=== PATIENT | male | born 1965 | race African-American/Black ===

== ENCOUNTER 2020-09-28 13:19 | Inpatient (IN) | payer OTHER, SELFPAY ==
[2020-09-28] VITALS (16 sets, daily range): BP systolic 158–182; BP diastolic 110–136; PULSE 91–107; RESP 18–31; TEMP 35.9–36.6; O2SAT 86–97; BMI 58.1; BMI 51.5
--- NOTE | ~2020-09-28 | US_ITS ---
EXAMINATION: US venous doppler [facility] DATE: 09/29/2020 11:54 INDICATION: Lower limb edema. TECHNIQUE: Grayscale ultrasound images without and with compression and Doppler ultrasound images of the bilateral lower extremity veins were obtained. COMPARISON: None. FINDINGS: The visualized portions of right common femoral vein, profunda (deep) femoral vein, femoral vein, pop liteal vein, peroneal veins, posterior tibial veins, and greater saphenous vein outflow are patent. The visualized portions of left common femoral vein, profunda femoral vein, femoral vein, popliteal v ein, peroneal veins, posterior tibial veins, and greater saphenous vein outflow are patent. IMPRESSION: 1. No deep venous thrombosis. Reviewed, dictated and finalized at location B.
--- NOTE | ~2020-09-28 | XR_ITS ---
EXAMINATION: XR chest 2V DATE: 10/02/2020 13:24 INDICATION: Congestive heart failure. TECHNIQUE: Frontal and lateral views of the chest were obtained on 3 radiographs. COMPARISON: Chest single view 09/28/2020 FINDINGS: Sensitivity and specificity are decreased by obesity. There are airspace and interstitial o pacities in the mid and lower lung zones. No pleural effusion or pneumothorax. Cardiomegaly is noted. IMPRESSION: 1. Airspace and interstitial opacities in the mid and lower lung zones with improvement on the right, consistent with pulmonary edema versus pneumonia. 2. Cardiomegaly. Reviewed, dictated and finalized at location B. IMPRESSION: 1. Airspace and interstitial opacities in the mid and lower lung zones with imp rovement on the right, consistent with pulmonary edema versus pneumonia. 2. Cardiomegaly.
--- NOTE | ~2020-09-28 | XR_ITS ---
XR chest 1V portable DATE: 09/28/2020 14:50 INDICATION: Shortness of breath. History of congestive heart failure. TECHNIQUE: Portable AP chest on 09/28/2020 at 1443 hours COMPARISON: None FINDINGS: There is cardiomegaly, pulmonary vascular congestion and redistribution. There is prominenc e of the minor fissure. There are bilateral central and lower lung zone infiltrates suggestive of pul monary edema. There may be small pleural effusions. No pneumothorax. IMPRESSION: Congestive heart failure pulmonary edema Reviewed, dictated and finalized at location A.
--- NOTE | ~2020-09-28 | XR_ITS ---
XR chest 1V portable 10/05/2020 16:14 Indication: CHF exacerbation Procedure: AP portable chest Comparison: 10/02/2020 Findings: Cardiomegaly with interstitial edema. No significant pleural effusion or pneumothorax. No a cute osseous abnormality. Impression: 1: Cardiomegaly with interstitial edema. Reviewed, dictated and finalized at location A. Impression: 1: Cardiomegaly with interstitial edema.
--- NOTE | 2020-09-28 13:32 | ECG_ITS ---
Measurements Intervals [place] Rate: 102 P: 60 MA: 128 QRS: 116 QRSD: 120 T: 48 QT: 395 QTc: 516 Interpretive Statements SINUS TACHYCARDIA RIGHT AXIS DEVIATION POSSIBLE LEFT ATRIAL ENLARGEMENT INTRAVENTRICULAR CONDUCTION DELAY CANNOT RULE OUT SEPTAL INFARCT, AGE INDETERMINATE BORDERLINE ST-T WAVE ABNORMALITY- ANT/INF LEADS BASELINE ARTIFACT- V2-V3 ABNORMAL ECG Electronically Signed On 09-28-2020 21:52:37 CDT by Mohamud Cortez D.O.
[2020-09-28 13:50] LABS: Basophils Absolute Auto 0.1 K/mm3 (0.0-0.1); Basophils Percent Auto 0.4 % (0.2-1.2); Eosinophils Absolute Auto 0.1 K/mm3 (0-0.3); Eosinophils Percent Auto 0.8 % (0-4.4); Hematocrit 50.7 % (42.0-52.0); Hemoglobin 14.7 g/dL (14.0-18.0); Immature Granulocyte Absolute 0.07 K/mm3 (0.00-0.031); Immature Granulocyte Percent A 0.4 % (0-0.5); Lymphocytes Absolute Auto 1.85 K/mm3 (0.9-3.2); Lymphocytes Percent Auto 11.1 % (18.3-44.2); Mean Corpuscular Hemoglobin 22.5 pg (26-34); Mean Corpuscular Volume 77.8 fl (80-100); Mean Platelet Volume 8.8 fl (7.4-10.4); Monocytes Absolute Auto 1.1 K/mm3 (0.1-0.6); Monocytes Percent Auto 6.6 % (2.6-8.5); Neutrophils Absolute Auto 13.5 K/mm3 (1.3-6.7); Neutrophils Percent Auto 80.7 % (45.5-73.1); Platelet Count Result 298 k/mm3 (150-375); Red Blood Count 6.52 M/mm3 (4.6-6.20); White Blood Count 16.7 K/mm3 (4.5-10.0)
[2020-09-28 13:53] LABS: Hypochromasia 1+ (NORMAL); Platelet Estimate Adequate (Adequate)
[2020-09-28 13:58] LABS: Alanine Aminotransferase 16 U/L (4-50); Albumin Level 3.8 g/dL (3.5-5.1); Alkaline Phosphatase 77 U/L (38-126); Anion Gap 5 mmol/L (8-16); Aspartate Amino Transferase 22 U/L (17-59); Bilirubin,Total 0.5 mg/dL (0.2-1.3); Blood Urea Nitrogen 14 mg/dL (9-20); Calcium 8.9 mg/dL (8.4-10.2); Carbon Dioxide 30 mmol/L (22-30); Chloride 105 mmol/L (98-107); Estimated CRCL calculation 115 ml/min; Estimated Glomerular Filt Rate > 60; Glucose 142 mg/dL (75-110); Potassium 4.4 mmol/L (3.4-5.0); Sodium 140 mmol/L (137-145)
[2020-09-28 14:02] LABS: INR 1.1; Partial Thromboplastin Time 31.9 SECONDS (22.3-36.8); Prothrombin Time 14.3 Seconds (11.1-14.7)
[2020-09-28 14:10] LABS: Alveolar/Arterial O2 Gradient 139.5 mmHg; Base Excess ABG 1.8 mEq/l (+/-2.0); Fractional Inspired Oxygen 35 %; Oxygen Saturation ABG 90.3 % (95.0-100.0); Oxyhemoglobin 85.3 % THb (90.0-100.0); PCO2 ABG 44.4 mmHg (35.0-45.0); PO2 ABG 58.4 mmHg (80.0-100.0); PO2 FiO2 Ratio Arterial Blood 1.67 %; pH ABG 7.402 (7.350-7.450)
[2020-09-28 14:11] LABS: Troponin I 0.012 ng/mL (0.000-0.034)
[2020-09-28 14:11] LABS: Device NON-INVASIVE VENT; Modified Allen's Test Pass; Site Drawn LEFT RADIAL
[2020-09-28 14:12] LABS: Non-Invasive Expiratory Pressure 8 CMH2O; Non-Invasive Inspiratory Pressure 16 CMH2O; Non-Invasive Vent Rate 16 /MIN
--- NOTE | 2020-09-28 15:02 | ED.SOB ---
HPI - SOB/Dyspnea General Chief Complaint: Shortness of Breath/Dyspnea Stated Complaint: SOB-CHF Time Seen by Provider: 09/28/20 13:30 Source: patient Limitations: no limitations History of Present Illness HPI Narrative: Patient is 55 years old -Citizen Of The [place] male presents to the ED by private car with gradual increase of shortness of breath over the last few days, got worse today. History of CHF, on chronic oxygen by nasal cannula at 3 L all the time. Patient denies any fever, chills, nausea, vomiting, chest pain, back pain. Patient did not take his medications for a while Related Data Home Medications Medication Instructions Recorded Confirmed No Home Medications 09/28/20 09/28/20 Allergies Allergy/AdvReac Type Severity Reaction Status Date / Time No Known Allergies Allergy Verified 09/28/20 13:27 Review of Systems Review of Systems: ROS unobtainable: Yes unobtainable due to medical condition PMFSH Social History Social History Smoking packs per day: 1 Smoking cigarettes per day: 20.0 Years smoked: 40 Smoking pack-years: 40.00 Smoking status: Current every day smoker Tobacco type: cigarettes Alcohol intake: never Substance use: current Substance use type: marijuana Last use: 09/26/2020 Gender identity (if verbalized by the patient): Male Spiritual care concerns: No Exam Narrative: Exam Narrative: General appearance: Well-developed, well-nourished, obese, hyperventilating, Skin: Normal color Head: Normocephalic, nontraumatic Eyes: Clear conjunctiva ENT: Oropharynx normal, ears normal, nose normal Neck: Supple, nontender Chest and respiratory: Marked effusion of air entry bilaterally, scattered with rales bilaterally mainly on the right side Heart: Tachycardia Abdomen: Soft, nontender, no organomegaly, quiet bowel sounds Vascular: Normal peripheral pulses, normal capillary refill. Musculoskeletal: Normal range of motion, nontender back Neurologic: Alert and oriented, unable to talk because of the trouble breathing Course Course Emergency Course: Improving Vital Signs Vital signs: Vital Signs Temperature 36.5 C 09/28/20 13:24 Pulse Rate 107 H 09/28/20 13:24 Respiratory Rate 31 H 09/28/20 13:24 Blood Pressure 174/118 H 09/28/20 13:24 Pulse Oximetry 87 L 09/28/20 13:24 Temperature 35.9 C L 09/28/20 16:40 Pulse Rate 92 09/28/20 18:00 Respiratory Rate 21 H 09/28/20 16:43 Blood Pressure 174/112 H 09/28/20 16:40 Pulse Oximetry 94 09/28/20 16:43 MDM - SOB/Dyspnea MDM Narrative Medical decision making narrative: Patient presents with shortness of breath. My differential diagnosis as below. Labs, chest x-ray, blood gas, BiPAP ordered further plan to follow Differential Diagnosis Differential diagnosis: Likely acute exacerbation of chronic obstructive airways disease, congestive heart failure, community acquired pneumonia and pulmonary embolism Lab Data Result diagrams: 09/28/20 13:39 09/28/20 13:39 Labs: Lab Results 09/28/20 09/28/20 09/28/20 Range/Units 13:39 13:39 13:39 WBC 16.7 H (4.5-10.0) K/mm3 RBC 6.52 H (4.6-6.20) M/mm3 Hgb 14.7 (14.0-18.0) g/dL Hct 50.7 (42.0-52.0) % MCV 77.8 L (80-100) fl MCH 22.5 L (26-34) pg MCHC 29.0 L (32-36) g/dl RDW 22.0 H (11.5-14.5) % Plt Count 298 (150-375) k/mm3 MPV 8.8 (7.4-10.4) fl Immature Gran % (Auto) 0.4 (0-0.5) % Neut % (Auto) 80.7 H (45.5-73.1) % Lymph % (Auto) 11.1 L (18.3-44.2) % [place] % (Auto) 6.6 (2.6-8.5) % Eos % (Auto) 0.8 (0-4.4) % Baso % (Auto) 0.4
[2020-09-28] MEDS: FUROSEMIDE INJ 40 MG/4 ML VIAL 60 MG IV PUSH (15:08)
[2020-09-28] MEDS: NITROGLYCERIN OINTMENT 1 INCH DOSE TRANSDERM ×2 (15:10→23:39)
[2020-09-28] MEDS: FUROSEMIDE INJ 40 MG/4 ML VIAL 20 MG IV PUSH (15:17)
[2020-09-28 16:00] LABS: NT Pro B Type Natriuretic Pept 891 PG/ML (5-100)
--- NOTE | 2020-09-28 16:43 | PC.NURSE ---
This patient, Daniel Santiago, was admitted to IMU Room 209-01 at 1637 on 09/28/2020. Patient/family oriented to hospital policies and general routines including ID bracelet, bed and alarms, visiting hours, pain management, procedures, bathroom and other care routines, personal items, smoking policy, room service/diet, and visiting hours. Information on how to activate the Rapid Response Team has been discussed. Patient/Family are encouraged to report perceived risks to care and to ask questions if they do not understand what they are told or what they should do.
[2020-09-28 19:21] LABS: Troponin I 0.013 ng/mL (0.000-0.034)
--- NOTE | 2020-09-28 20:30 | PM.IMHP ---
H&P: HPI History of Present Illness Date/Time: 09/28/20 20:30 Chief Complaint: Shortness of breath. Narrative: This a 55-year-old male with chronic respiratory failure on 3.5 liters nasal cannula at nighttime, hypertension, congestive heart failure, and COPD presented to the emergency department earlier today via private vehicle for evaluation of shortness of breath. He has a history of noncompliance and has not taken any of his medications in quite some time for unclear reasons. He has chronic dyspnea on exertion and will frequently get midsternal chest heaviness when walking up steps associated with shortness of breath. The pain typically resolves with resting for short period of time. Patient believes that he may have underlying coronary artery disease and it sounds as though he had a heart catheterization done in [place] within the last year or so although no stents were placed. In any regard he has had increasing dyspnea on lesser and lesser exertion for the past couple of days and was much worse this morning. His SpO2 was 68% on room air when he arrived to triage and he was started on BiPAP. Chest x-ray demonstrated congestive changes and pretty significant pulmonary edema. Blood pressures were also high and he was started on nitro paste. The time my evaluation he is comfortable on BiPAP and reports having put out quite a bit urine. I let him take a break from the BiPAP while I was in the room and his SpO2 was hanging right around 90% on 4 liters nasal cannula. He denies fever, chills, sweats, cold and flu symptoms, exposure to COVID-19, current chest pain, pleuritic chest pain, palpitations, cough, nausea, vomiting, and sweats. Review of Systems Review of Systems: Narrative: Twelve systems were reviewed with pertinent positives and negatives as per HPI. No history of cardiac dysrhythmia, venous thromboembolism, or thyroid disease. Denies dysuria and hematuria. Except as documented, all other systems were reviewed and are negative. [facility] Past Medical History Medical History (Updated 09/28/20 @ 23:28 by Mary Kay Alfonso PA-C) Chronic obstructive pulmonary disease Chronic respiratory failure with hypoxia On 3.5 liters nasal cannula at nighttime. Congestive heart failure Gout Hyperlipidemia Hypertension Morbid obesity Non-compliance Tobacco dependence Surgical History Surgical History (Updated 09/28/20 @ 23:28 by Mary Kay G. Gerling, PA-C) No history of previous surgery Family History Family History (Updated 09/28/20 @ 23:28 by Mary Kay Alfonso PA-C) Other Diabetes mellitus Hypertension Social History Social History (Updated 09/28/20 @ 23:28 by Mary Kay Alfonso PA-C) Social History: Surrogate decision maker: Larry Tan, mother. Code status: Full code. Smoking packs per day: 1 Smoking cigarettes per day: 20.0 Years smoked: 40 Smoking pack-years: 40.00 Smoking status: Current every day smoker Tobacco type: cigarettes Alcohol intake: never Substance use: current Substance use type: marijuana Last use: 09/26/2020 Additional living arrangements comments: The patient splits his time staying with his mother in [place], [place] and another family member in [place]. Additional occupation/education comments: Disabled. Gender identity (if verbalized by the patient): Male Spiritual care concerns: No Meds Home Medications and Allergies Home Medications Medication Instructions Recorded Confirmed Type No Home Medications 09/28/20 09/28/20 History Allergies Allergy/AdvReac Type Severity Reaction Status Date / Time No Known Allergies Allergy Verified 09/28/20 13:27 Vital Signs Vital Signs - 24 hr 09/28/20 13:24 09/28/20 13:35 09/28/20 13:45 Temperature 97.7 F Pulse Rate 107 H 104 H 100 Respiratory Rate 31 H 28 H Blood Pressure 174/118 H Pulse Oximetry 87 L 96 09/28/20 14:19 09/28/20 15:11 09/28/20 15:40 Temperature Pu
[2020-09-28] MEDS: FUROSEMIDE INJ 40 MG/4 ML VIAL IV PUSH (20:45)
[2020-09-28 22:29] LABS: Troponin I < 0.012 ng/mL (0.000-0.034)
[2020-09-28 23:04] LABS: Hemoglobin A1C 6.7 % (<5.7)
[2020-09-28 23:52] LABS: Thyroid Stimulating Hormone Reflex 0.825 uIU/mL (0.465-4.68)
[2020-09-29] VITALS (18 sets, daily range): BP systolic 118–174; BP diastolic 57–119; PULSE 72–99; RESP 18–24; TEMP 36.2–37.1; O2SAT 84–97
[2020-09-29 05:16] LABS: Hematocrit 50.1 % (42.0-52.0); Hemoglobin 14.5 g/dL (14.0-18.0); Mean Corpuscular HGB Conc 28.9 g/dl (32-36); Mean Corpuscular Hemoglobin 22.6 pg (26-34); Mean Corpuscular Volume 77.9 fl (80-100); Mean Platelet Volume 9.1 fl (7.4-10.4); Platelet Count Result 298 k/mm3 (150-375); Red Blood Count 6.43 M/mm3 (4.6-6.20); White Blood Count 14.2 K/mm3 (4.5-10.0)
[2020-09-29] MEDS: NITROGLYCERIN OINTMENT 1 INCH DOSE TRANSDERM (06:21)
[2020-09-29 06:59] LABS: Alanine Aminotransferase 16 U/L (4-50); Albumin Level 3.7 g/dL (3.5-5.1); Alkaline Phosphatase 69 U/L (38-126); Anion Gap 1 mmol/L (8-16); Aspartate Amino Transferase 22 U/L (17-59); Bilirubin,Total 0.9 mg/dL (0.2-1.3); Blood Urea Nitrogen 15 mg/dL (9-20); Calcium 8.5 mg/dL (8.4-10.2); Carbon Dioxide 38 mmol/L (22-30); Chloride 104 mmol/L (98-107); Estimated CRCL calculation 124 ml/min; Estimated Glomerular Filt Rate > 60; Glucose 99 mg/dL (75-110); Potassium 4.1 mmol/L (3.4-5.0); Sodium 143 mmol/L (137-145)
--- NOTE | 2020-09-29 09:19 | PM.CNCAR ---
Assessment and Plan Assessment and plan (1) Chronic obstructive pulmonary disease: Code(s): J44.9 - Chronic obstructive pulmonary disease, unspecified Status: Acute Assessment and Plan: Per hospitalists (2) Acute exacerbation of congestive heart failure: Code(s): I50.9 - Heart failure, unspecified Status: Acute Assessment and Plan: Probably diastolic in etiology. He has marked hypertension. Will continue IV diuretics 40 mg IV Q 12 hours. DC his nitroglycerin paste. 2D echocardiogram Doppler will be ordered and reviewed. Continue aspirin, statin, lisinopril. Will start carvedilol 6.25 mg p.o. b.i.d.. Follow electrolytes, intake and output, daily weights (3) Acute respiratory failure with hypoxia: Code(s): J96.01 - Acute respiratory failure with hypoxia Status: Acute Assessment and Plan: CHF versus COPD exacerbation versus COVID versus other (4) Hypertension: Code(s): I10 - Essential (primary) hypertension Status: Acute Assessment and Plan: As detailed above (5) Morbid obesity: Code(s): E66.01 - Morbid (severe) obesity due to excess calories Status: Acute (6) Non-compliance: Code(s): Z91.19 - Patient's noncompliance with other medical treatment and regimen Status: Acute Assessment and Plan: Currently not taking any medications at home (7) Tobacco dependence: Code(s): F17.200 - Nicotine dependence, unspecified, uncomplicated Status: Acute Assessment and Plan: Still smoking. Tobacco abuse counseling performed History of Present Illness History of Present Illness Consult date/time: 09/29/20 09:19 Requesting physician: Mary Kay Alfonso PA-C Consult reason: congestive heart failure Reason For Visit: CHF exacerbation,acute hypoxic respiratory failure Narrative: Date of service 09/29/2020 Reason for consultation: CHF, shortness of breath, rule out COVID, chronic respiratory failure History: Patient is a 55-year-old male who currently lives in [facility]. He was down in the [place], [place] area visiting family. He did have a barbecue a couple of days ago. He does have a history of congestive heart failure as well as chronic respiratory therapy on chronic 3 L oxygen via nasal cannula. He still smokes also. Previous workup had been performed at [facility]. Has not seen a sensitized paper tester in years. He is not established with any physician up in [place] either. Patient was on his way home whenever he became relatively acutely short of breath. He did have a little bit of chest tightness/heaviness for couple of minutes but mostly had severe and worsening shortness of breath. His oxygen saturation levels were 68% on room air whenever he arrived. He was initially started on BiPAP and was given diuretics as well as nitroglycerin paste. COVID swab performed but awaiting results. Currently feels better but still has some nasal congestion. Leg swelling has been more present recently but this did improve after receiving the IV diuretics yesterday. He denies any fevers or chills. Denies any active chest pain. He does have some presyncopal feelings once he sneezes but otherwise no syncope, paroxysmal nocturnal dyspnea, orthopnea, palpitations. Review of Systems Review of Systems: All systems reviewed & are unremarkable except as noted in HPI and below Constitutional: Constitutional: Denies body ache(s) and Denies chills Eyes: Eyes: Denies blurry vision ENT: Reports Normal hearing present Cardiovascular: Cardiovascular: Reports chest pain and Reports lightheadedness Respiratory: Respiratory: Reports cough and Reports dyspnea Gastrointestinal: Gastrointestinal: Denies abdominal pain Genitourinary: Genitourinary: Denies dysuria and Denies urinary frequency Musculoskeletal: Musculoskeletal: Denies back pain and Denies neck pain Integumentary/Breasts: Skin/Breast: Denies dry skin a
[2020-09-29] MEDS: ASPIRIN 81 MG ENTERIC TABLET PO (09:49)
[2020-09-29] MEDS: SPIRONOLACTONE 25 MG TABLET PO (09:50)
[2020-09-29] MEDS: lisinopriL 20 MG TABLET PO (09:50)
[2020-09-29] MEDS: ATORVASTATIN 40 MG TABLET PO (09:50)
[2020-09-29] MEDS: ENOXAPARIN 40 MG/0.4 ML SYRINGE SUB-Q (09:51)
[2020-09-29] MEDS: FUROSEMIDE INJ 40 MG/4 ML VIAL IV PUSH ×2 (09:51→21:03)
[2020-09-29] MEDS: carvediloL 6.25 MG TABLET PO ×2 (09:53→21:03)
--- NOTE | 2020-09-29 11:58 | PM.IMPN ---
Progress Note: A&P Assessment and Plan (1) Acute respiratory failure with hypoxia: Code(s): J96.01 - Acute respiratory failure with hypoxia Status: Acute Assessment and Plan: Patient on supplemental oxygen by nasal cannula Likely secondary to congestive heart failure however patient smokes a half a pack of cigarettes daily for 40 years Breathing treatments (2) Acute exacerbation of congestive heart failure: Code(s): I50.9 - Heart failure, unspecified Status: Acute Assessment and Plan: Diuresing Fluid restrict Daily weight Appreciate cardiology consult Echocardiogram (3) Chronic obstructive pulmonary disease: Code(s): J44.9 - Chronic obstructive pulmonary disease, unspecified Status: Acute Assessment and Plan: Patient noncompliance with maintenance medications Will obtain pulmonology consult Does not have a online marketing analyst (4) Hypertension: Code(s): I10 - Essential (primary) hypertension Status: Acute Assessment and Plan: Continue to monitor (5) Morbid obesity: Code(s): E66.01 - Morbid (severe) obesity due to excess calories Status: Acute Assessment and Plan: Lifestyle and diet modification 1800 calorie restricted diet (6) Congestive heart failure: Qualifiers: Heart failure chronicity: unspecified Heart failure type: unspecified Qualified Code(s): I50.9 - Heart failure, unspecified Code(s): I50.9 - Heart failure, unspecified Status: Acute Assessment and Plan: Likely secondary to patient not adherence to treatment Carvedilol, spironolactone and lisinopril (7) Tobacco dependence: Code(s): F17.200 - Nicotine dependence, unspecified, uncomplicated Status: Acute Assessment and Plan: Nicotine patch as needed (8) Non-compliance: Code(s): Z91.19 - Patient's noncompliance with other medical treatment and regimen Status: Acute Assessment and Plan: Patient has been given education regarding adherence to treatment and follow-up Subjective Date/time seen: 09/29/20 11:58 I feel okay Review of Systems Review of Systems: Narrative: I was getting short of breath ,my legs were swollen. Constitutional: Comments: No fevers no rigors no chills Cardiovascular: Comments: Shortness of breath PND orthopnea at increased abdominal girth bilateral lower extremity swelling dry cough. Respiratory: Comments: No sputum production Gastrointestinal: Comments: Increased abdominal girth Musculoskeletal: Comments: Bilateral lower extremity swelling Integumentary/Breasts: Comments: No rashes Neurologic: Comments: No sensorimotor deficit Exam Narrative: Exam Narrative: Patient is sitting by the edge of the bed Const: General: alert, awake, Physically active, acute distress mild and ill appearing acutely Nutritional Appearance: overweight (Morbid obesity) Orientation/consciousness: patient oriented x3 HENMT: Head: normal to inspection, normocephalic and atraumatic Ears: hearing grossly normal bilaterally Face and sinus: normal facial exam Eyes: General: appearance normal, both eyes and all related structures Pupils: Equal, round and reactive pupils present EOM: EOMs intact bilaterally Neck: Neck: full ROM, no lymphadenopathy and no JVD Thyroid: thyroid normal Lymphatic: no lymphadenopathy noted Resp: Effort & Inspection: normal respiratory effort and able to speak in complete sentences Auscultation: clear to auscultation bilaterally Cardio: Jugular venous distension: no JVD Rate: regular rate Rhythm: regular rhythm Heart sounds: S1 normal heart sound present and S2 normal heart sound present GI: Inspection: Pannus present and obesity GI Palp: Yes Soft to palpation and Yes No hepatosplenomegaly present : General: Yes deferred Skin: Rashes: no rashes Wounds: no wounds Neuro: General: patient oriented x3 and CN's II-XI intact bilaterally Cranial nerve
[2020-09-29 17:00] LABS: Glucose Point of Care 141 (65-105)
[2020-09-29 19:04] LABS: SARS-CoV-2 RNA PCR Negative
[2020-09-29 20:19] LABS: Glucose Point of Care 100 (65-105)
--- NOTE | 2020-09-29 22:21 | PC.NURSE ---
patient is non-compliant with fluid restriction. patient was trying to get out of bed without assistance to get water from the bathroom. patient was to weak to stand up. had to instruct patient to get back to bed. he refused. he is sitting on side of the bed. patient is now on the phone calling 3-4 people and complaining about not getting water. telling them that he can't live without water, and he can't walk. he will not keep his o2 on.
[2020-09-30] VITALS (19 sets, daily range): BP systolic 117–152; BP diastolic 67–105; PULSE 77–91; RESP 12–22; TEMP 36.1–36.8; O2SAT 91–100
--- NOTE | 2020-09-30 06:13 | PC.NURSE ---
patients O2 sats decrease into the upper 70's nd low to mid 80's when laying on his side. tried to increase his O2 to acomidate. patient complained that O2 was high. his O2 sats are in upper 80's and 90's while sitting up.
[2020-09-30 07:18] LABS: Glucose Point of Care 100 (65-105)
[2020-09-30 08:17] LABS: Glucose Point of Care 132 (65-105)
[2020-09-30] MEDS: carvediloL 6.25 MG TABLET PO ×2 (09:16→20:29)
[2020-09-30] MEDS: ASPIRIN 81 MG ENTERIC TABLET PO (09:16)
[2020-09-30] MEDS: ATORVASTATIN 40 MG TABLET PO (09:16)
[2020-09-30] MEDS: FUROSEMIDE INJ 40 MG/4 ML VIAL IV PUSH ×2 (09:17→20:29)
[2020-09-30] MEDS: ENOXAPARIN 40 MG/0.4 ML SYRINGE SUB-Q (09:17)
[2020-09-30] MEDS: SPIRONOLACTONE 25 MG TABLET PO (09:17)
[2020-09-30] MEDS: lisinopriL 20 MG TABLET PO (09:17)
--- NOTE | 2020-09-30 10:20 | PM.PNCARD ---
Progress Note: A&P Assessment and Plan (1) Chronic obstructive pulmonary disease: Code(s): J44.9 - Chronic obstructive pulmonary disease, unspecified Status: Acute Assessment and Plan: Per hospitalists (2) Acute exacerbation of congestive heart failure: Code(s): I50.9 - Heart failure, unspecified Status: Acute Assessment and Plan: Probably diastolic in etiology. BMP now. Continue carvedilol, aspirin, atorvastatin, spironolactone, lisinopril (3) Acute respiratory failure with hypoxia: Code(s): J96.01 - Acute respiratory failure with hypoxia Status: Acute Assessment and Plan: Will check an apnea link (4) Hypertension: Code(s): I10 - Essential (primary) hypertension Status: Acute Assessment and Plan: As detailed above (5) Morbid obesity: Code(s): E66.01 - Morbid (severe) obesity due to excess calories Status: Acute (6) Non-compliance: Code(s): Z91.19 - Patient's noncompliance with other medical treatment and regimen Status: Acute Assessment and Plan: Currently not taking any medications at home (7) Tobacco dependence: Code(s): F17.200 - Nicotine dependence, unspecified, uncomplicated Status: Acute Assessment and Plan: Still smoking. Tobacco abuse counseling performed Subjective Date/time seen: 09/30/20 10:20 Interval history: 55-year-old admitted for shortness of breath. Date of service 09/30/2020: He is feeling a bit somnolent today. His back hurts. No chest pain or shortness of breath. Review of Systems Review of Systems: All systems reviewed & are unremarkable except as noted in HPI and below Constitutional: Constitutional: Denies body ache(s), Denies chills, Denies fatigue and Denies headache(s) Eyes: Eyes: Denies blurry vision ENT: Reports Normal hearing present, Denies headache(s) and Denies neck pain Cardiovascular: Cardiovascular: Reports chest pain, Reports lightheadedness and Reports dyspnea Respiratory: Respiratory: Reports cough and Reports dyspnea Gastrointestinal: Gastrointestinal: Denies abdominal pain Genitourinary: Genitourinary: Denies dysuria and Denies urinary frequency Musculoskeletal: Musculoskeletal: Denies back pain and Denies neck pain Integumentary/Breasts: Skin/Breast: Denies dry skin and Denies unusual bruising Neurologic: Reports Normal hearing present, Denies confusion and Denies headache(s) Psychiatric: Psychiatric: Denies anxiety and Denies confusion Endocrine: Endocrine: Denies fatigue and Denies flushing Hematologic/Lymphatic: Hematologic/Lymphatic: Denies easy bleeding and Denies easy bruising Allergic/Immunologic: Allergic/Immunologic: Denies GI upset with certain foods Exam Narrative: Exam Narrative: Alert awake and oriented. Appears to be no acute distress. Appears stated age Const: General: comfortable and no acute distress; No confusion Orientation/consciousness: No confusion HENMT: General nose exam: Normal nares present and no epistaxis Eyes: Sclera: sclerae normal Neck: Neck: supple and no JVD Chest: Other: No reproducible chest wall pain to palpation Resp: Auscultation: clear to auscultation bilaterally Cardio: Rate: regular rate Rhythm: regular rhythm GI: Inspection: normal to inspection Skin: General skin exam: normal color Neuro: General: No confusion Cranial nerves: Yes Normal hearing present Cognition (Neuro): normal cognition Speech: normal speech Extrem: General: edema (1+ bilateral lower edema) Psych: Mental Status: mental status grossly normal Objective Data Vital Signs Vital Signs: Vital Signs - 24 hr 09/29/20 12:00 09/29/20 14:00 09/29/20 16:00 Temperature 36.3 C L 37.1 C Pulse Rate 86 88 87 Respiratory Rate 24 H 24 H Blood Pressure 174/104 H 146/93 H Pulse Oximetry 97 94 09/29/20 18:00 09/29/20 20:00 09/29/20 21:03 Temperature 36.2 C L Pulse Rate 90 90 89
[2020-09-30 11:12] LABS: Glucose Point of Care 101 (65-105)
[2020-09-30 11:13] LABS: Anion Gap 3 mmol/L (8-16); Blood Urea Nitrogen 16 mg/dL (9-20); Calcium 8.8 mg/dL (8.4-10.2); Carbon Dioxide 35 mmol/L (22-30); Chloride 101 mmol/L (98-107); Estimated CRCL calculation 152 ml/min; Estimated Glomerular Filt Rate > 60; Glucose 110 mg/dL (75-110); Potassium 3.9 mmol/L (3.4-5.0); Sodium 139 mmol/L (137-145)
--- NOTE | 2020-09-30 14:18 | PM.IMPN ---
Progress Note: A&P Assessment and Plan (1) Acute respiratory failure with hypoxia: Code(s): J96.01 - Acute respiratory failure with hypoxia Status: Acute Assessment and Plan: Patient on supplemental oxygen by nasal cannula Likely secondary to congestive heart failure and copd exacerbations Breathing treatments As per chest xray (2) Acute exacerbation of congestive heart failure: Code(s): I50.9 - Heart failure, unspecified Status: Acute Assessment and Plan: Diuresing iv 40 mg bid Fluid restrict Daily weight Appreciate cardiology consult EF 50-55% (3) Chronic obstructive pulmonary disease: Code(s): J44.9 - Chronic obstructive pulmonary disease, unspecified Status: Acute Assessment and Plan: Patient noncompliance with maintenance medications (4) Hypertension: Code(s): I10 - Essential (primary) hypertension Status: Acute Assessment and Plan: Continue to monitor (5) Morbid obesity: Code(s): E66.01 - Morbid (severe) obesity due to excess calories Status: Acute Assessment and Plan: Lifestyle and diet modification 1800 calorie restricted diet (6) Congestive heart failure: Qualifiers: Heart failure chronicity: unspecified Heart failure type: unspecified Qualified Code(s): I50.9 - Heart failure, unspecified Code(s): I50.9 - Heart failure, unspecified Status: Acute Assessment and Plan: Likely secondary to patient not adherence to treatment Carvedilol, spironolactone and lisinopril (7) Tobacco dependence: Code(s): F17.200 - Nicotine dependence, unspecified, uncomplicated Status: Acute Assessment and Plan: Nicotine patch as needed (8) Non-compliance: Code(s): Z91.19 - Patient's noncompliance with other medical treatment and regimen Status: Acute Assessment and Plan: Patient has been given education regarding adherence Subjective Date/time seen: 09/30/20 14:18 Interval history: 55-year-old male with chronic respiratory failure on 3.5 liters nasal cannula at nighttime, hypertension, congestive heart failure, and COPD presented to the emergency department earlier today via private vehicle for evaluation of shortness of breath. Pt is breathing better down to 12 liters of oxygen. passed urine well. Review of Systems Review of Systems: All systems reviewed & are unremarkable except as noted in HPI and below Exam Narrative: Exam Narrative: Patient is sitting by the edge of the bed Const: General: alert, awake, Physically active, acute distress mild and ill appearing acutely Nutritional Appearance: overweight (Morbid obesity) Orientation/consciousness: patient oriented x3 HENMT: Head: normal to inspection and atraumatic Resp: Effort & Inspection: normal respiratory effort and able to speak in complete sentences Auscultation: clear to auscultation bilaterally Cardio: Jugular venous distension: no JVD Rate: regular rate Rhythm: regular rhythm Heart sounds: S1 normal heart sound present and S2 normal heart sound present GI: Inspection: obesity Skin: Rashes: no rashes Wounds: no wounds Neuro: General: patient oriented x3 and CN's II-XI intact bilaterally Cranial nerves: Yes CN's II-XII intact bilaterally and Yes Equal, round and reactive pupils present Cognition (Neuro): normal cognition Speech: normal speech Gait exam (Neuro): Normal gait present Motor exam (neuro): 5/5 motor strength present throughout Extrem: General: edema bilateral and pedal edema Objective Data Vital Signs Vital Signs: Vital Signs - 24 hr 09/29/20 16:00 09/29/20 18:00 09/29/20 20:00 Temperature 37.1 C 36.2 C L Pulse Rate 87 90 90 Respiratory Rate 24 H 20 Blood Pressure 146/93 H 118/57 L Pulse Oximetry 94 95 09/29/20 21:03 09/29/20 22:00 09/29/20 22:47 Temperature Pulse Rate 89 92 Respiratory Rate Blood Pressure Pulse Oximetry 96 04
[2020-09-30 17:29] LABS: Glucose Point of Care 181 (65-105)
[2020-09-30 20:32] LABS: Glucose Point of Care 100 (65-105)
--- NOTE | 2020-09-30 21:35 | ECHO_ITS ---
Patient Info Name: Daniel Santiago Age: 55 years : 1965 Gender: Male Ht: 70 in Wt: 359 lbs BSA: 2.93 m2 HR: 87 bpm BP: 162 / 111 mmHg Technical Quality: Fair Exam Date: 09/30/2020 9:19 AM Exam Location: [facility] Patient Status: Inpatient Admit Date: 09/28/2020 Staff Ordering Physician: Mary Kay Alfonso PA-C Research Worker Kitchen: Rosio Prince RDCS Attending Provider: Mina Stark MD Referring Physician: Naty MENCHACA; Exam Type: CA echo doppler color flow Study Info Indications I10 - Essential (primary) hypertension I50.9 - Heart failure, unspecified Complete two-dimentional, color flow and Doppler transthoracic echocardiogram is performed with agitated saline and with contrast to opacify the left ventricle and to improve the delineation of the left ventricle endocardial borders. Summary 1. Normal LV size, moderate LVH, low normal LV systolic function, EF 50-55%; normal diastolic function. Mild right atrial enlargement. Atrial septum deviated from right to left suggestive of elevated right atrial pressures. Mild mitral valve thickening, trace MR. Mild aortic valve sclerosis, no stenosis. Trace to mild TR, RVSP 34 mmHg. Left Ventricle Left ventricular chamber dimension is normal. Left ventricular systolic function is normal, estimated at 50-55%. There is moderately increased left ventricular wall thickness. The left ventricular diastolic function is normal. Right Ventricle Right ventricular chamber dimension is normal. Right ventricular systolic function is normal. Left Atria Left atrial chamber dimension is normal. Right Atria Right atrial chamber dimension is mildly enlarged. Aortic Valve There is mild aortic valve sclerosis. There is no aortic valve stenosis. Pulmonic Valve The pulmonic valve is not well visualized. There is mild pulmonic regurgitation. Mitral Valve The mitral valve has thickened leaflets. There is trace mitral valve regurgitation. Tricuspid Valve The tricuspid valve leaflets are normal. There is mild tricuspid valve calcification. Pericardium/Pleural The pericardium appears normal. There is trivial pericardial effusion. Aorta The aortic root size at the sinus of Valsalva is normal. Left Ventricular Outflow Tract Name Value Normal LVOT 2D LVOT Diameter 2.0 cm LVOT Doppler LVOT Peak Gradient 6 mmHg LVOT Mean Gradient 3 mmHg LVOT VTI 19 cm LVOT VTI/AV VTI Ratio 0.9 LVOT Stroke Volume 57 ml LVOT CO 5.0 l/min LVOT CI 1.7 l/min/m2 Pulmonic Valve Name Value Normal RVOT Doppler RVOT Peak Gradient 1 mmHg PV Doppler
--- NOTE | 2020-09-30 23:33 | PCRCNOTE ---
APNEA LINK WILL BE HELD TONIGHT DUE TO PATIENT OXYGEN REQUIREMENT OF 12LPM HFNC, WHICH IS INCOMPATIBLE WITH APNEA LINK OXYGEN CANNULA/FLOW SENSOR. DISCUSSED SITUATION WITH KORI LUNDBERG. THIS ORDER WILL NEED TO BE CLARIFIED WITH DR LYNN TOMORROW, 10/01/2020
[2020-10-01] VITALS (17 sets, daily range): BP systolic 112–152; BP diastolic 58–115; PULSE 74–88; RESP 18–22; TEMP 36.2–36.6; O2SAT 92–99
[2020-10-01 05:29] LABS: Hematocrit 49.6 % (42.0-52.0); Hemoglobin 14.1 g/dL (14.0-18.0); Mean Corpuscular HGB Conc 28.4 g/dl (32-36); Mean Corpuscular Hemoglobin 22.6 pg (26-34); Mean Corpuscular Volume 79.5 fl (80-100); Mean Platelet Volume 9.1 fl (7.4-10.4); Platelet Count Result 299 k/mm3 (150-375); Red Blood Count 6.24 M/mm3 (4.6-6.20); Red Cell Distribution Width 21.2 % (11.5-14.5); White Blood Count 14.9 K/mm3 (4.5-10.0)
[2020-10-01 06:05] LABS: Alanine Aminotransferase 12 U/L (4-50); Albumin Level 3.7 g/dL (3.5-5.1); Alkaline Phosphatase 64 U/L (38-126); Aspartate Amino Transferase 17 U/L (17-59); Bilirubin,Total 0.7 mg/dL (0.2-1.3); Blood Urea Nitrogen 16 mg/dL (9-20); Calcium 8.3 mg/dL (8.4-10.2); Carbon Dioxide > 40 mmol/L (22-30); Chloride 100 mmol/L (98-107); Estimated CRCL calculation 121 ml/min; Estimated Glomerular Filt Rate > 60; Glucose 92 mg/dL (75-110); Potassium 4.1 mmol/L (3.4-5.0); Sodium 142 mmol/L (137-145)
[2020-10-01 08:13] LABS: Glucose Point of Care 169 (65-105)
[2020-10-01] MEDS: ENOXAPARIN 40 MG/0.4 ML SYRINGE SUB-Q (08:34)
[2020-10-01] MEDS: ATORVASTATIN 40 MG TABLET PO (08:34)
[2020-10-01] MEDS: FUROSEMIDE INJ 40 MG/4 ML VIAL IV PUSH (08:34)
[2020-10-01] MEDS: ASPIRIN 81 MG ENTERIC TABLET PO (08:34)
[2020-10-01] MEDS: carvediloL 6.25 MG TABLET PO (08:34)
[2020-10-01] MEDS: SPIRONOLACTONE 25 MG TABLET PO (08:34)
[2020-10-01] MEDS: lisinopriL 20 MG TABLET PO (08:34)
--- NOTE | 2020-10-01 10:28 | PM.PNCARD ---
Progress Note: A&P Assessment and Plan (1) Chronic obstructive pulmonary disease: Code(s): J44.9 - Chronic obstructive pulmonary disease, unspecified Status: Acute Assessment and Plan: Per hospitalists (2) Acute exacerbation of congestive heart failure: Code(s): I50.9 - Heart failure, unspecified Status: Acute Assessment and Plan: Related to hypertensive heart disease. Obesity hypoventilation syndrome. Continue carvedilol, aspirin, atorvastatin, spironolactone, lisinopril. Will reduce IV furosemide to 40 mg IV daily. Will increase carvedilol to 12.5 mg p.o. b.i.d.. (3) Acute respiratory failure with hypoxia: Code(s): J96.01 - Acute respiratory failure with hypoxia Status: Acute Assessment and Plan: Will check an apnea link (4) Hypertension: Code(s): I10 - Essential (primary) hypertension Status: Acute Assessment and Plan: As detailed above (5) Morbid obesity: Code(s): E66.01 - Morbid (severe) obesity due to excess calories Status: Acute (6) Non-compliance: Code(s): Z91.19 - Patient's noncompliance with other medical treatment and regimen Status: Acute Assessment and Plan: Currently not taking any medications at home (7) Tobacco dependence: Code(s): F17.200 - Nicotine dependence, unspecified, uncomplicated Status: Acute Assessment and Plan: Still smoking. Tobacco abuse counseling performed Subjective Date/time seen: 10/01/20 10:28 Interval history: 55-year-old admitted for shortness of breath. Date of service 10/01/2020: Continues to feel better. No chest pain or shortness of breath. Still on high-flow oxygen Review of Systems Review of Systems: All systems reviewed & are unremarkable except as noted in HPI and below Constitutional: Constitutional: Denies body ache(s), Denies chills, Denies fatigue and Denies headache(s) Eyes: Eyes: Denies blurry vision ENT: Reports Normal hearing present, Denies headache(s) and Denies neck pain Cardiovascular: Cardiovascular: Reports chest pain, Reports lightheadedness and Reports dyspnea Respiratory: Respiratory: Reports cough and Reports dyspnea Gastrointestinal: Gastrointestinal: Denies abdominal pain Genitourinary: Genitourinary: Denies dysuria and Denies urinary frequency Musculoskeletal: Musculoskeletal: Denies back pain and Denies neck pain Integumentary/Breasts: Skin/Breast: Denies dry skin and Denies unusual bruising Neurologic: Reports Normal hearing present, Denies confusion and Denies headache(s) Psychiatric: Psychiatric: Denies anxiety and Denies confusion Endocrine: Endocrine: Denies fatigue and Denies flushing Hematologic/Lymphatic: Hematologic/Lymphatic: Denies easy bleeding and Denies easy bruising Allergic/Immunologic: Allergic/Immunologic: Denies GI upset with certain foods Exam Narrative: Exam Narrative: Alert awake and oriented. Appears to be no acute distress. Appears stated age Const: General: comfortable and no acute distress; No confusion Orientation/consciousness: No confusion HENMT: General nose exam: Normal nares present and no epistaxis Eyes: Sclera: sclerae normal Neck: Neck: supple and no JVD Chest: Other: No reproducible chest wall pain to palpation Resp: Auscultation: clear to auscultation bilaterally Cardio: Rate: regular rate Rhythm: regular rhythm GI: Inspection: normal to inspection Skin: General skin exam: normal color Neuro: General: No confusion Cranial nerves: Yes Normal hearing present Cognition (Neuro): normal cognition Speech: normal speech Extrem: General: edema (1+ bilateral lower edema) Psych: Mental Status: mental status grossly normal Objective Data Vital Signs Vital Signs: Vital Signs - 24 hr 09/30/20 12:00 09/30/20 14:00 09/30/20 16:00 Temperature 36.6 C 36.6 C Pulse Rate 79 77 83 Respiratory Rate 12 12 Blood Pressure 117/67 131/77
[2020-10-01 11:22] LABS: Glucose Point of Care 91 (65-105)
--- NOTE | 2020-10-01 13:30 | PM.IMPN ---
Progress Note: A&P Assessment and Plan (1) Acute respiratory failure with hypoxia: Code(s): J96.01 - Acute respiratory failure with hypoxia Status: Acute Assessment and Plan: Patient on supplemental oxygen by nasal cannula Likely secondary to congestive heart failure and copd exacerbations Breathing treatments (2) Acute exacerbation of congestive heart failure: Code(s): I50.9 - Heart failure, unspecified Status: Acute Assessment and Plan: Diuresing iv 40 mg bid Fluid restrict Daily weight Appreciate cardiology consult EF 50-55% (3) Chronic obstructive pulmonary disease: Code(s): J44.9 - Chronic obstructive pulmonary disease, unspecified Status: Acute Assessment and Plan: Patient noncompliance with maintenance medications (4) Hypertension: Code(s): I10 - Essential (primary) hypertension Status: Acute Assessment and Plan: Continue to monitor (5) Morbid obesity: Code(s): E66.01 - Morbid (severe) obesity due to excess calories Status: Acute Assessment and Plan: Lifestyle and diet modification 1800 calorie restricted diet (6) Congestive heart failure: Qualifiers: Heart failure chronicity: unspecified Heart failure type: unspecified Qualified Code(s): I50.9 - Heart failure, unspecified Code(s): I50.9 - Heart failure, unspecified Status: Acute Assessment and Plan: Likely secondary to patient not adherence to treatment Carvedilol, spironolactone and lisinopril (7) Tobacco dependence: Code(s): F17.200 - Nicotine dependence, unspecified, uncomplicated Status: Acute Assessment and Plan: Nicotine patch as needed (8) Non-compliance: Code(s): Z91.19 - Patient's noncompliance with other medical treatment and regimen Status: Acute Assessment and Plan: Patient has been given education regarding adherence (9) ERENDIRA (obstructive sleep apnea): Code(s): G47.33 - Obstructive sleep apnea (adult) (pediatric) Status: Acute Subjective Date/time seen: 10/01/20 13:30 Interval history: 55-year-old male with chronic respiratory failure on 3.5 liters nasal cannula at nighttime, hypertension, congestive heart failure, and COPD presented to the emergency department earlier today via private vehicle for evaluation of shortness of breath. Pt is breathing better down to 12 liters of oxygen. passed urine well. Review of Systems Review of Systems: All systems reviewed & are unremarkable except as noted in HPI and below Exam Narrative: Exam Narrative: Patient is sitting by the edge of the bed Const: Nutritional Appearance: overweight (Morbid obesity) Resp: Effort & Inspection: normal respiratory effort and able to speak in complete sentences Auscultation: clear to auscultation bilaterally Cardio: Jugular venous distension: no JVD Rate: regular rate Rhythm: regular rhythm Heart sounds: S1 normal heart sound present and S2 normal heart sound present GI: Inspection: obesity Skin: Rashes: no rashes Wounds: no wounds Neuro: General: patient oriented x3 and CN's II-XI intact bilaterally Cranial nerves: Yes CN's II-XII intact bilaterally and Yes Equal, round and reactive pupils present Cognition (Neuro): normal cognition Speech: normal speech Gait exam (Neuro): Normal gait present Motor exam (neuro): 5/5 motor strength present throughout Extrem: General: edema bilateral and pedal edema Objective Data Vital Signs Vital Signs: Vital Signs - 24 hr 09/30/20 14:00 09/30/20 16:00 09/30/20 18:00 Temperature 36.6 C Pulse Rate 77 83 88 Respiratory Rate 12 Blood Pressure 131/77 Pulse Oximetry 96 09/30/20 19:45 09/30/20 20:00 09/30/20 20:29 Temperature 36.1 C L Pulse Rate 85 79 82 Respiratory Rate 20 Blood Pressure 152/105 H Pulse Oximetry 94 94 09/30/20 22:00 09/30/20 22:30 09/30/20 23:07 Temperature 36.4 C L Pulse Rat
[2020-10-01 16:36] LABS: Glucose Point of Care 91 (65-105)
[2020-10-01 20:18] LABS: Glucose Point of Care 80 (65-105)
[2020-10-01] MEDS: carvediloL 12.5 MG TABLET PO (20:20)
[2020-10-02] VITALS (23 sets, daily range): BP systolic 116–130; BP diastolic 73–85; PULSE 70–84; RESP 18–24; TEMP 36.1–36.6; O2SAT 90–97
--- NOTE | 2020-10-02 03:09 | PCRCNOTE ---
Unable to obtain Apnea Link due to Pt oxygen demand at 12L/M Liter flow to be at or below 4L/M for testing
[2020-10-02 05:23] LABS: Basophils Absolute Auto 0.1 K/mm3 (0.0-0.1); Basophils Percent Auto 0.5 % (0.2-1.2); Eosinophils Absolute Auto 0.2 K/mm3 (0-0.3); Eosinophils Percent Auto 1.5 % (0-4.4); Hematocrit 50.7 % (42.0-52.0); Hemoglobin 14.2 g/dL (14.0-18.0); Immature Granulocyte Absolute 0.05 K/mm3 (0.00-0.031); Immature Granulocyte Percent A 0.4 % (0-0.5); Lymphocytes Absolute Auto 2.12 K/mm3 (0.9-3.2); Lymphocytes Percent Auto 15.5 % (18.3-44.2); Mean Corpuscular Hemoglobin 22.4 pg (26-34); Mean Corpuscular Volume 79.8 fl (80-100); Mean Platelet Volume 9.1 fl (7.4-10.4); Monocytes Percent Auto 7.1 % (2.6-8.5); Neutrophils Absolute Auto 10.2 K/mm3 (1.3-6.7); Platelet Count Result 302 k/mm3 (150-375); Red Blood Count 6.35 M/mm3 (4.6-6.20); Red Cell Distribution Width 21.2 % (11.5-14.5); White Blood Count 13.6 K/mm3 (4.5-10.0)
[2020-10-02 05:29] LABS: Anion Gap 2 mmol/L (8-16); Blood Urea Nitrogen 21 mg/dL (9-20); Calcium 8.2 mg/dL (8.4-10.2); Carbon Dioxide 37 mmol/L (22-30); Chloride 100 mmol/L (98-107); Estimated CRCL calculation 148 ml/min; Estimated Glomerular Filt Rate > 60; Glucose 92 mg/dL (75-110); Potassium 4.3 mmol/L (3.4-5.0); Sodium 139 mmol/L (137-145)
[2020-10-02 05:50] LABS: Anisocytosis 1+ (NORMAL); Hypochromasia 1+ (NORMAL); Platelet Estimate Adequate (Adequate)
[2020-10-02 08:25] LABS: Glucose Point of Care 101 (65-105)
[2020-10-02] MEDS: ENOXAPARIN 40 MG/0.4 ML SYRINGE SUB-Q (09:07)
[2020-10-02] MEDS: FUROSEMIDE INJ 40 MG/4 ML VIAL IV PUSH (09:07)
[2020-10-02] MEDS: ATORVASTATIN 40 MG TABLET PO (09:07)
[2020-10-02] MEDS: lisinopriL 20 MG TABLET PO (09:07)
[2020-10-02] MEDS: ASPIRIN 81 MG ENTERIC TABLET PO (09:08)
[2020-10-02] MEDS: carvediloL 12.5 MG TABLET PO ×2 (09:08→21:15)
[2020-10-02] MEDS: SPIRONOLACTONE 25 MG TABLET PO (09:08)
--- NOTE | 2020-10-02 11:12 | PM.PNCARD ---
Progress Note: A&P Assessment and Plan (1) Chronic obstructive pulmonary disease: Code(s): J44.9 - Chronic obstructive pulmonary disease, unspecified Status: Acute Assessment and Plan: Per hospitalists (2) Acute exacerbation of congestive heart failure: Code(s): I50.9 - Heart failure, unspecified Status: Acute Assessment and Plan: Related to hypertensive heart disease. Obesity hypoventilation syndrome. Continue carvedilol, aspirin, atorvastatin, spironolactone, lisinopril. Continue IV diuretics but will likely need to transition to oral within the next 24-48 hours. Repeat PA and lateral chest x-ray today. (3) Acute respiratory failure with hypoxia: Code(s): J96.01 - Acute respiratory failure with hypoxia Status: Acute Assessment and Plan: Undoubtedly has sleep apnea (4) Hypertension: Code(s): I10 - Essential (primary) hypertension Status: Acute Assessment and Plan: As detailed above (5) Morbid obesity: Code(s): E66.01 - Morbid (severe) obesity due to excess calories Status: Acute (6) Non-compliance: Code(s): Z91.19 - Patient's noncompliance with other medical treatment and regimen Status: Acute Assessment and Plan: Currently not taking any medications at home (7) Tobacco dependence: Code(s): F17.200 - Nicotine dependence, unspecified, uncomplicated Status: Acute Assessment and Plan: Still smoking. Tobacco abuse counseling performed Subjective Date/time seen: 10/02/20 11:12 Interval history: 55-year-old admitted for shortness of breath. Date of service 10/02/2020: Continues to feel better. No chest pain or shortness of breath. Still on high-flow oxygen. He has diuresed over 11 L negative since admission. Review of Systems Review of Systems: All systems reviewed & are unremarkable except as noted in HPI and below Constitutional: Constitutional: Denies body ache(s), Denies chills, Denies fatigue and Denies headache(s) Eyes: Eyes: Denies blurry vision ENT: Reports Normal hearing present, Denies headache(s) and Denies neck pain Cardiovascular: Cardiovascular: Reports chest pain, Reports lightheadedness and Reports dyspnea Respiratory: Respiratory: Reports cough and Reports dyspnea Gastrointestinal: Gastrointestinal: Denies abdominal pain Genitourinary: Genitourinary: Denies dysuria and Denies urinary frequency Musculoskeletal: Musculoskeletal: Denies back pain and Denies neck pain Integumentary/Breasts: Skin/Breast: Denies dry skin and Denies unusual bruising Neurologic: Reports Normal hearing present, Denies confusion and Denies headache(s) Psychiatric: Psychiatric: Denies anxiety and Denies confusion Endocrine: Endocrine: Denies fatigue and Denies flushing Hematologic/Lymphatic: Hematologic/Lymphatic: Denies easy bleeding and Denies easy bruising Allergic/Immunologic: Allergic/Immunologic: Denies GI upset with certain foods Exam Narrative: Exam Narrative: Alert awake and oriented. Appears to be no acute distress. Appears stated age Const: General: comfortable and no acute distress; No confusion Orientation/consciousness: No confusion HENMT: General nose exam: Normal nares present and no epistaxis Eyes: Sclera: sclerae normal Neck: Neck: supple and no JVD Chest: Other: No reproducible chest wall pain to palpation Resp: Auscultation: clear to auscultation bilaterally Cardio: Rate: regular rate Rhythm: regular rhythm GI: Inspection: normal to inspection Skin: General skin exam: normal color Neuro: General: No confusion Cranial nerves: Yes Normal hearing present Cognition (Neuro): normal cognition Speech: normal speech Extrem: General: normal to inspection Psych: Mental Status: mental status grossly normal Objective Data Vital Signs Vital Signs: Vital Signs - 24 hr 10/01/20 12:00 10/01/20 14:00 10/01/20 16:00 Temperature 36.2 C
[2020-10-02 12:08] LABS: Glucose Point of Care 101 (65-105)
--- NOTE | 2020-10-02 15:27 | PM.IMPN ---
Progress Note: A&P Assessment and Plan (1) Acute respiratory failure with hypoxia: Code(s): J96.01 - Acute respiratory failure with hypoxia Status: Acute Assessment and Plan: Pt is on 11 liters of oxygen high flow Likely secondary to congestive heart failure and copd exacerbations Breathing treatments FOR COPD EXCERBATION (2) Acute exacerbation of congestive heart failure: Code(s): I50.9 - Heart failure, unspecified Status: Acute Assessment and Plan: Diuresing iv 40 mg bid Fluid restrict Daily weight Appreciate cardiology consult EF 50-55% (3) Chronic obstructive pulmonary disease: Code(s): J44.9 - Chronic obstructive pulmonary disease, unspecified Status: Acute Assessment and Plan: Patient noncompliance with maintenance medications (4) Hypertension: Code(s): I10 - Essential (primary) hypertension Status: Acute Assessment and Plan: Continue to monitor (5) Morbid obesity: Code(s): E66.01 - Morbid (severe) obesity due to excess calories Status: Acute Assessment and Plan: Lifestyle and diet modification 1800 calorie restricted diet (6) Congestive heart failure: Qualifiers: Heart failure chronicity: unspecified Heart failure type: unspecified Qualified Code(s): I50.9 - Heart failure, unspecified Code(s): I50.9 - Heart failure, unspecified Status: Acute Assessment and Plan: Likely secondary to patient not adherence to treatment Carvedilol, spironolactone and lisinopril (7) Tobacco dependence: Code(s): F17.200 - Nicotine dependence, unspecified, uncomplicated Status: Acute Assessment and Plan: Nicotine patch as needed (8) Non-compliance: Code(s): Z91.19 - Patient's noncompliance with other medical treatment and regimen Status: Acute Assessment and Plan: Patient has been given education regarding adherence (9) ERENDIRA (obstructive sleep apnea): Code(s): G47.33 - Obstructive sleep apnea (adult) (pediatric) Status: Acute Subjective Date/time seen: 10/02/20 15:27 Interval history: 55-year-old admitted for shortness of breath. Date of service 10/02/2020: Pt passing urine good. Still on high-flow oxygen. on 12 liters, cxr from today shows BL pulmonary edema. Review of Systems Review of Systems: All systems reviewed & are unremarkable except as noted in HPI and below Exam Narrative: Exam Narrative: Patient is sitting by the edge of the bed Const: General: ill appearing acutely Nutritional Appearance: overweight (Morbid obesity) Orientation/consciousness: patient oriented x3 Resp: Effort & Inspection: normal respiratory effort and able to speak in complete sentences Auscultation: clear to auscultation bilaterally Cardio: Jugular venous distension: no JVD Rate: regular rate Rhythm: regular rhythm Heart sounds: S1 normal heart sound present and S2 normal heart sound present GI: Inspection: Pannus present and obesity Skin: Rashes: no rashes Wounds: no wounds Neuro: General: patient oriented x3 and CN's II-XI intact bilaterally Cranial nerves: Yes CN's II-XII intact bilaterally and Yes Equal, round and reactive pupils present Cognition (Neuro): normal cognition Speech: normal speech Gait exam (Neuro): Normal gait present Motor exam (neuro): 5/5 motor strength present throughout Extrem: General: edema bilateral and pedal edema Objective Data Vital Signs Vital Signs: Vital Signs - 24 hr 10/01/20 16:00 10/01/20 18:00 10/01/20 20:00 Temperature 36.6 C Pulse Rate 88 78 82 Respiratory Rate 22 H Blood Pressure 117/77 Pulse Oximetry 92 94 10/01/20 20:12 10/01/20 20:20 10/01/20 22:00 Temperature 36.4 C L Pulse Rate 83 80 74 Respiratory Rate 20 Blood Pressure 152/115 H Pulse Oximetry 92 10/01/20 23:54 10/02/20 00:00 10/02/20 02:00 Temperature 36.4 C Pulse Rate 81 78 76 Respiratory Rate
[2020-10-02] MEDS: ALBUTEROL SULFATE NEB 2.5 MG/3 ML INH 1.25 MG INHALATION (15:59)
[2020-10-02 16:02] LABS: Glucose Point of Care 105 (65-105)
[2020-10-02] MEDS: ACETAMINOPHEN 500 MG TABLET 1000 MG PO (21:08)
[2020-10-02 21:16] LABS: Glucose Point of Care 120 (65-105)
[2020-10-03] VITALS (22 sets, daily range): BP systolic 95–168; BP diastolic 68–107; PULSE 67–89; RESP 16–28; TEMP 36.1–36.6; O2SAT 90–99
--- NOTE | 2020-10-03 02:29 | PCRCNOTE ---
pt at this time still unable to do apnea link requiring too much oxygen.
[2020-10-03 07:04] LABS: Glucose Point of Care 94 (65-105)
[2020-10-03] MEDS: lisinopriL 20 MG TABLET PO (09:18)
[2020-10-03] MEDS: carvediloL 12.5 MG TABLET PO ×2 (09:18→20:19)
[2020-10-03] MEDS: ASPIRIN 81 MG ENTERIC TABLET PO (09:19)
[2020-10-03] MEDS: ATORVASTATIN 40 MG TABLET PO (09:19)
[2020-10-03] MEDS: SPIRONOLACTONE 25 MG TABLET PO (09:19)
[2020-10-03] MEDS: FUROSEMIDE INJ 40 MG/4 ML VIAL IV PUSH (09:19)
[2020-10-03] MEDS: ENOXAPARIN 40 MG/0.4 ML SYRINGE SUB-Q (09:19)
[2020-10-03] MEDS: predniSONE 20 MG TABLET 40 MG PO (09:19)
[2020-10-03 12:52] LABS: Glucose Point of Care 151 (65-105)
--- NOTE | 2020-10-03 13:41 | PM.PNCARD ---
Progress Note: A&P Assessment and Plan (1) Chronic obstructive pulmonary disease: Code(s): J44.9 - Chronic obstructive pulmonary disease, unspecified Status: Acute Assessment and Plan: Per hospitalists (2) Acute exacerbation of congestive heart failure: Code(s): I50.9 - Heart failure, unspecified Status: Acute Assessment and Plan: Related to hypertensive heart disease. Obesity hypoventilation syndrome. Continue carvedilol, aspirin, atorvastatin, spironolactone, lisinopril. Continue IV diuretics but will likely need to transition to oral within the next 24-48 hours. (3) Acute respiratory failure with hypoxia: Code(s): J96.01 - Acute respiratory failure with hypoxia Status: Acute Assessment and Plan: Undoubtedly has sleep apnea Will consult pulmonology at this point Dr. Upton as his oxygen needs continued arise despite copious diuresis. Again he undoubtedly has sleep apnea, obesity hypoventilation syndrome, chronic respiratory failure (4) Hypertension: Code(s): I10 - Essential (primary) hypertension Status: Acute Assessment and Plan: As detailed above (5) Morbid obesity: Code(s): E66.01 - Morbid (severe) obesity due to excess calories Status: Acute (6) Non-compliance: Code(s): Z91.19 - Patient's noncompliance with other medical treatment and regimen Status: Acute Assessment and Plan: Currently not taking any medications at home (7) Tobacco dependence: Code(s): F17.200 - Nicotine dependence, unspecified, uncomplicated Status: Acute Assessment and Plan: Still smoking. Tobacco abuse counseling performed Subjective Date/time seen: 10/03/20 13:41 Interval history: 55-year-old admitted for shortness of breath. Date of service 10/03/2020: Continues to feel better. No chest pain or shortness of breath. Still on high-flow oxygen. He has diuresed over 12 L negative since admission. He does have trouble sleeping at night. Review of Systems Review of Systems: All systems reviewed & are unremarkable except as noted in HPI and below Constitutional: Constitutional: Denies body ache(s), Denies chills, Denies fatigue and Denies headache(s) Eyes: Eyes: Denies blurry vision ENT: Reports Normal hearing present, Denies headache(s) and Denies neck pain Cardiovascular: Cardiovascular: Reports chest pain, Reports lightheadedness and Reports dyspnea Respiratory: Respiratory: Reports cough and Reports dyspnea Gastrointestinal: Gastrointestinal: Denies abdominal pain Genitourinary: Genitourinary: Denies dysuria and Denies urinary frequency Musculoskeletal: Musculoskeletal: Denies back pain and Denies neck pain Integumentary/Breasts: Skin/Breast: Denies dry skin and Denies unusual bruising Neurologic: Reports Normal hearing present, Denies confusion and Denies headache(s) Psychiatric: Psychiatric: Denies anxiety and Denies confusion Endocrine: Endocrine: Denies fatigue and Denies flushing Hematologic/Lymphatic: Hematologic/Lymphatic: Denies easy bleeding and Denies easy bruising Allergic/Immunologic: Allergic/Immunologic: Denies GI upset with certain foods Exam Narrative: Exam Narrative: Alert awake and oriented. Appears to be no acute distress. Appears stated age Const: General: comfortable and no acute distress; No confusion Orientation/consciousness: No confusion HENMT: General nose exam: Normal nares present and no epistaxis Eyes: Sclera: sclerae normal Neck: Neck: supple and no JVD Chest: Other: No reproducible chest wall pain to palpation Resp: Auscultation: clear to auscultation bilaterally Cardio: Rate: regular rate Rhythm: regular rhythm GI: Inspection: normal to inspection Skin: General skin exam: normal color Neuro: General: No confusion Cranial nerves: Yes Normal hearing present Cognition (Neuro): normal cognition Speech: normal speech Extrem: Gene
--- NOTE | 2020-10-03 14:20 | PM.IMPN ---
Progress Note: A&P Assessment and Plan (1) Acute respiratory failure with hypoxia: Code(s): J96.01 - Acute respiratory failure with hypoxia Status: Acute Assessment and Plan: Pt is on 10 liters of oxygen high flow Likely secondary to congestive heart failure and copd exacerbations Breathing treatments FOR COPD EXCERBATION (2) Acute exacerbation of congestive heart failure: Code(s): I50.9 - Heart failure, unspecified Status: Acute Assessment and Plan: Diuresing iv 40 mg daily continue to diuresis, pt advised to walk more in the room. Fluid restrict Daily weight Appreciate cardiology consult EF 50-55% (3) Chronic obstructive pulmonary disease: Code(s): J44.9 - Chronic obstructive pulmonary disease, unspecified Status: Acute Assessment and Plan: Patient noncompliance with maintenance medications (4) Hypertension: Code(s): I10 - Essential (primary) hypertension Status: Acute Assessment and Plan: Continue to monitor (5) Morbid obesity: Code(s): E66.01 - Morbid (severe) obesity due to excess calories Status: Acute Assessment and Plan: Lifestyle and diet modification 1800 calorie restricted diet (6) Congestive heart failure: Qualifiers: Heart failure chronicity: unspecified Heart failure type: unspecified Qualified Code(s): I50.9 - Heart failure, unspecified Code(s): I50.9 - Heart failure, unspecified Status: Acute Assessment and Plan: Likely secondary to patient not adherence to treatment Carvedilol, spironolactone and lisinopril (7) Tobacco dependence: Code(s): F17.200 - Nicotine dependence, unspecified, uncomplicated Status: Acute Assessment and Plan: Nicotine patch as needed (8) Non-compliance: Code(s): Z91.19 - Patient's noncompliance with other medical treatment and regimen Status: Acute Assessment and Plan: Patient has been given education regarding adherence (9) ERENDIRA (obstructive sleep apnea): Code(s): G47.33 - Obstructive sleep apnea (adult) (pediatric) Status: Acute Subjective Date/time seen: 10/03/20 14:20 Interval history: 55-year-old admitted for shortness of breath. Pt passing urine good. Still on high-flow oxygen. on 10 liters continue to diuresis. Pt looks less swollen in his face and legs, still having abdominal swelling Review of Systems Review of Systems: All systems reviewed & are unremarkable except as noted in HPI and below Exam Narrative: Exam Narrative: Patient is sitting by the edge of the bed Const: Nutritional Appearance: overweight (Morbid obesity) Orientation/consciousness: patient oriented x3 Neck: Neck: full ROM, no lymphadenopathy and no JVD Thyroid: thyroid normal Lymphatic: no lymphadenopathy noted Resp: Effort & Inspection: normal respiratory effort and able to speak in complete sentences Auscultation: clear to auscultation bilaterally Cardio: Jugular venous distension: no JVD Rate: regular rate Rhythm: regular rhythm Heart sounds: S1 normal heart sound present and S2 normal heart sound present GI: Inspection: Pannus present and obesity Skin: Rashes: no rashes Wounds: no wounds Neuro: General: patient oriented x3 and CN's II-XI intact bilaterally Cranial nerves: Yes CN's II-XII intact bilaterally and Yes Equal, round and reactive pupils present Cognition (Neuro): normal cognition Speech: normal speech Gait exam (Neuro): Normal gait present Motor exam (neuro): 5/5 motor strength present throughout Extrem: General: edema bilateral and pedal edema Objective Data Vital Signs Vital Signs: Vital Signs - 24 hr 10/02/20 15:55 10/02/20 16:00 10/02/20 16:07 Temperature 36.1 C L Pulse Rate 84 76 84 Respiratory Rate 20 Blood Pressure 126/79 Pulse Oximetry 93 10/02/20 18:00 10/02/20 19:22 10/02/20 20:00 Temperature 36.4 C L Pulse Rate 81 81 81 Respiratory R
[2020-10-03 17:25] LABS: Glucose Point of Care 213 (65-105)
[2020-10-03] MEDS: INSULIN ASPART (*BKC) 100 UNITS/ML SUB-Q (18:09)
[2020-10-03] MEDS: hydrALAZINE HCL 20 MG/ML VIAL IV PUSH (20:19)
[2020-10-03 21:09] LABS: Glucose Point of Care 136 (65-105)
[2020-10-04] VITALS (24 sets, daily range): BP systolic 112–165; BP diastolic 66–112; PULSE 65–89; RESP 16–23; TEMP 35.9–36.6; O2SAT 90–97
[2020-10-04 05:04] LABS: Anion Gap 5 mmol/L (8-16); Blood Urea Nitrogen 18 mg/dL (9-20); Calcium 8.9 mg/dL (8.4-10.2); Carbon Dioxide 31 mmol/L (22-30); Chloride 102 mmol/L (98-107); Estimated CRCL calculation 168 ml/min; Estimated Glomerular Filt Rate > 60; Glucose 101 mg/dL (75-110); Potassium 3.9 mmol/L (3.4-5.0); Sodium 138 mmol/L (137-145)
[2020-10-04] MEDS: HYDROcodone/acetaminophen (*CRX) 7.5-325 MG TABLET 1 TAB PO (06:47)
[2020-10-04 08:17] LABS: Glucose Point of Care 158 (65-105)
[2020-10-04] MEDS: ENOXAPARIN 40 MG/0.4 ML SYRINGE SUB-Q (08:21)
[2020-10-04] MEDS: carvediloL 12.5 MG TABLET PO ×2 (08:22→19:49)
[2020-10-04] MEDS: SPIRONOLACTONE 25 MG TABLET PO (08:22)
[2020-10-04] MEDS: lisinopriL 20 MG TABLET PO (08:23)
[2020-10-04] MEDS: FUROSEMIDE INJ 40 MG/4 ML VIAL IV PUSH (08:23)
[2020-10-04] MEDS: ASPIRIN 81 MG ENTERIC TABLET PO (08:23)
[2020-10-04] MEDS: ATORVASTATIN 40 MG TABLET PO (08:23)
[2020-10-04] MEDS: predniSONE 20 MG TABLET 40 MG PO (08:23)
--- NOTE | 2020-10-04 09:26 | PM.PNCARD ---
Progress Note: A&P Assessment and Plan (1) Chronic obstructive pulmonary disease: Code(s): J44.9 - Chronic obstructive pulmonary disease, unspecified Status: Acute Assessment and Plan: Per hospitalists (2) Acute exacerbation of congestive heart failure: Code(s): I50.9 - Heart failure, unspecified Status: Acute Assessment and Plan: Related to hypertensive heart disease. Obesity hypoventilation syndrome. Continue carvedilol, aspirin, atorvastatin, spironolactone, lisinopril. Continue IV diuretics but will likely need to transition to oral within the next 24-48 hours. Once able to wean from high-flow oxygen to close to his home dose of oxygen, okay for discharge (3) Acute respiratory failure with hypoxia: Code(s): J96.01 - Acute respiratory failure with hypoxia Status: Acute Assessment and Plan: Undoubtedly has sleep apnea pulmonology consult (4) Hypertension: Code(s): I10 - Essential (primary) hypertension Status: Acute Assessment and Plan: As detailed above (5) Morbid obesity: Code(s): E66.01 - Morbid (severe) obesity due to excess calories Status: Acute (6) Non-compliance: Code(s): Z91.19 - Patient's noncompliance with other medical treatment and regimen Status: Acute Assessment and Plan: Currently not taking any medications at home (7) Tobacco dependence: Code(s): F17.200 - Nicotine dependence, unspecified, uncomplicated Status: Acute Assessment and Plan: Still smoking. Tobacco abuse counseling performed Subjective Date/time seen: 10/04/20 09:26 Interval history: 55-year-old admitted for shortness of breath. Date of service 10/04/2020: Sitting up to side of bed. Looks much better today than he has in previous days. No lower extremity swelling. No chest pain.. Review of Systems Review of Systems: All systems reviewed & are unremarkable except as noted in HPI and below Constitutional: Constitutional: Denies body ache(s), Denies chills, Denies fatigue and Denies headache(s) Eyes: Eyes: Denies blurry vision ENT: Reports Normal hearing present, Denies headache(s) and Denies neck pain Cardiovascular: Cardiovascular: Reports chest pain, Reports lightheadedness and Reports dyspnea Respiratory: Respiratory: Reports cough and Reports dyspnea Gastrointestinal: Gastrointestinal: Denies abdominal pain Genitourinary: Genitourinary: Denies dysuria and Denies urinary frequency Musculoskeletal: Musculoskeletal: Denies back pain and Denies neck pain Integumentary/Breasts: Skin/Breast: Denies dry skin and Denies unusual bruising Neurologic: Reports Normal hearing present, Denies confusion and Denies headache(s) Psychiatric: Psychiatric: Denies anxiety and Denies confusion Endocrine: Endocrine: Denies fatigue and Denies flushing Hematologic/Lymphatic: Hematologic/Lymphatic: Denies easy bleeding and Denies easy bruising Allergic/Immunologic: Allergic/Immunologic: Denies GI upset with certain foods Exam Narrative: Exam Narrative: Alert awake and oriented. Appears to be no acute distress. Appears stated age Const: General: comfortable and no acute distress; No confusion Orientation/consciousness: No confusion HENMT: General nose exam: Normal nares present and no epistaxis Eyes: Sclera: sclerae normal Neck: Neck: supple and no JVD Chest: Other: No reproducible chest wall pain to palpation Resp: Auscultation: clear to auscultation bilaterally Cardio: Rate: regular rate Rhythm: regular rhythm GI: Inspection: normal to inspection Skin: General skin exam: normal color Neuro: General: No confusion Cranial nerves: Yes Normal hearing present Cognition (Neuro): normal cognition Speech: normal speech Extrem: General: normal to inspection Psych: Mental Status: mental status grossly normal Objective Data Vital Signs Vital Signs: Vital Signs - 24 hr 09/12
[2020-10-04 10:47] LABS: Glucose Point of Care 100 (65-105)
--- NOTE | 2020-10-04 12:28 | PM.CNPUL ---
Assessment and Plan Assessment and plan (1) ERENDIRA (obstructive sleep apnea): Code(s): G47.33 - Obstructive sleep apnea (adult) (pediatric) Status: Acute Assessment and Plan: He certainly has likely moderate to severe ERENDIRA that needs to be managed. Unfortunately he does not know his home CPAP settings. I will discontinue BiPAP since it feels very uncomfortable for him and resume CPAP at 13 cm H2O during sleep. Once discharge he will need to have a split night sleep study which I have ordered. I see no evidence of obesity hypoventilation syndrome at this time. he will follow-up with Dr. Upton as an outpatient once he has had a split night sleep study. (2) Chronic obstructive pulmonary disease: Code(s): J44.9 - Chronic obstructive pulmonary disease, unspecified Status: Acute Assessment and Plan: It is likely that he has a CHF exacerbation and it is unclear whether he is having a COPD exacerbation. I see no signs of current infection or bronchitis hence no need for antibiotics. Atrovent nebulized 0.5 mg q.6 hours Pulmicort 0.5 mg q.12 hours Wean prednisone quickly. No more than 5 days total as necessary (3) Acute exacerbation of congestive heart failure: Code(s): I50.9 - Heart failure, unspecified Status: Acute History of Present Illness History of Present Illness Consult date: 10/04/20 Chief complaint: CHF exacerbation,acute hypoxic respiratory failure Narrative: This is a very pleasant 55-year-old morbidly obese male who presents with progressive shortness of breath and coughing. He denied any fevers chills or night sweats. He denies any recent sick contacts or known person's with COVID-19. He denies any loss of taste or smell. He denies any diarrhea nausea or vomiting. He was admitted with a chest x-ray that showed increased interstitial opacities consistent with pulmonary edema versus atypical pneumonia. He is being treated for CHF exacerbation and is clinically improving. I was asked to see him for underlying management of ERENDIRA and possible OHS. An ABG done on admission showed 7.40/44/58. He is on home O2 usually at 3 L continuously. He has a 35-40 pack year smoking history and currently still smokes 5 cigarettes a day. He does have a cough productive of clear to yellow sputum but he says this cough has been unchanged for many years. He does have a CPAP machine and was diagnosed with sleep apnea approximately 5 years ago. He has difficulty falling asleep at night but when he wears the CPAP he says it works fine. He has not been to see a sleep physician for compliance checks. He also admits to gaining approximately 70 lb over the past 5 years. He naps during the day multiple times and gets very sleepy and tired. He says he has difficulty falling asleep at night. Review of Systems Review of Systems: All systems reviewed & are unremarkable except as noted in HPI and below PMFSH Past Medical History Medical History (Updated 10/01/20 @ 13:31 by Melissa Bobby MD) Chronic obstructive pulmonary disease Chronic respiratory failure with hypoxia On 3.5 liters nasal cannula at nighttime. Congestive heart failure Gout Hyperlipidemia Hypertension Morbid obesity Non-compliance Tobacco dependence Surgical History Surgical History (Updated 09/28/20 @ 23:28 by Mary Kay Alfonso PA-C) No history of previous surgery Family History Family History (Updated 09/28/20 @ 23:28 by Mary Kay Alfonso PA-C) Other Diabetes mellitus Hypertension Social History Social History (Updated 09/28/20 @ 23:28 by Mary Kay Alfonso PA-C) Social History: Surrogate decision maker: Larry Tan, mother. Code status: Full code. Smoking packs per day: 1 Smoking cigarettes per day: 20.0 Years smoked: 40 Smoking pack-years: 40.00 Smoking status: Current every day smoker Tobacco type: cigarettes Alcohol intake: never Substance use: current Substance use type:
--- NOTE | 2020-10-04 14:20 | PM.IMPN ---
Progress Note: A&P Assessment and Plan (1) Acute respiratory failure with hypoxia: Code(s): J96.01 - Acute respiratory failure with hypoxia Status: Acute Assessment and Plan: Pt is on 10 liters of oxygen high flow Likely secondary to congestive heart failure Continue to duresis (2) Acute exacerbation of congestive heart failure: Code(s): I50.9 - Heart failure, unspecified Status: Acute Assessment and Plan: Diuresing iv 40 mg daily continue to diuresis, pt advised to walk more in the room. Fluid restrict Daily weight EF 50-55% Pt is on coreg, spironolactone and lisinopril Daily bmp Cardiology consulted (3) Chronic obstructive pulmonary disease: Code(s): J44.9 - Chronic obstructive pulmonary disease, unspecified Status: Acute Assessment and Plan: Patient noncompliance with maintenance medications breathing treatments added and oral steroids Pulmonology consulted not an true exacerbation, treatments started due to non compliance (4) Hypertension: Code(s): I10 - Essential (primary) hypertension Status: Acute Assessment and Plan: Continue to monitor (5) Morbid obesity: Code(s): E66.01 - Morbid (severe) obesity due to excess calories Status: Acute Assessment and Plan: Lifestyle and diet modification 1800 calorie restricted diet (6) Congestive heart failure: Qualifiers: Heart failure chronicity: unspecified Heart failure type: unspecified Qualified Code(s): I50.9 - Heart failure, unspecified Code(s): I50.9 - Heart failure, unspecified Status: Acute Assessment and Plan: Likely secondary to patient not adherence to treatment Carvedilol, spironolactone and lisinopril (7) Tobacco dependence: Code(s): F17.200 - Nicotine dependence, unspecified, uncomplicated Status: Acute Assessment and Plan: Nicotine patch as needed (8) Non-compliance: Code(s): Z91.19 - Patient's noncompliance with other medical treatment and regimen Status: Acute Assessment and Plan: Patient has been given education regarding adherence (9) ERENDIRA (obstructive sleep apnea): Code(s): G47.33 - Obstructive sleep apnea (adult) (pediatric) Status: Acute Assessment and Plan: CPAP at night , weight loss adviced pulmonology consulted Subjective Date/time seen: 10/04/20 14:20 Interval history: 55-year-old admitted for shortness of breath. Pt passing urine good. Still on high-flow oxygen. on 10 liters continue to diuresis. Pt looks less swollen in his face and legs, still having abdominal swelling. Continue to diuresis. Review of Systems Review of Systems: All systems reviewed & are unremarkable except as noted in HPI and below Exam Narrative: Exam Narrative: Pt lying in bed Const: Nutritional Appearance: overweight (Morbid obesity) Orientation/consciousness: patient oriented x3 HENMT: Head: normal to inspection and atraumatic Resp: Auscultation: diminished lung sounds Cardio: Jugular venous distension: no JVD Rate: regular rate Rhythm: regular rhythm Heart sounds: S1 normal heart sound present and S2 normal heart sound present GI: Inspection: obesity Skin: Rashes: no rashes Wounds: no wounds Neuro: General: patient oriented x3 and CN's II-XI intact bilaterally Cranial nerves: Yes CN's II-XII intact bilaterally and Yes Equal, round and reactive pupils present Cognition (Neuro): normal cognition Speech: normal speech Gait exam (Neuro): Normal gait present Motor exam (neuro): 5/5 motor strength present throughout Extrem: General: edema bilateral and pedal edema Objective Data Vital Signs Vital Signs: Vital Signs - 24 hr 10/03/20 16:00 10/03/20 18:00 10/03/20 20:00 Temperature 36.3 C L 36.1 C L Pulse Rate 87 86 83 Respiratory Rate 24 H 24 H Blood Pressure 136/89 168/107 H Pulse Oximetry 95 98 10/03/20 20:19 10/03/20 22:00
[2020-10-04] MEDS: IPRATROPIUM BR 0.02% INH SOLN 0.5 MG/2.5 ML VIAL INHALATION ×2 (14:24→20:26)
[2020-10-04 16:27] LABS: Glucose Point of Care 167 (65-105)
[2020-10-04] MEDS: BUDESONIDE RESPULE NEB 0.5 MG/2 ML AMP INHALATION (20:26)
[2020-10-04 20:35] LABS: Glucose Point of Care 131 (65-105)
[2020-10-05] VITALS (23 sets, daily range): BP systolic 100–150; BP diastolic 54–101; PULSE 70–86; RESP 16–22; TEMP 35.9–36.5; O2SAT 88–95
[2020-10-05] MEDS: IPRATROPIUM BR 0.02% INH SOLN 0.5 MG/2.5 ML VIAL INHALATION ×4 (02:12→19:46)
[2020-10-05 05:26] LABS: Anion Gap 1 mmol/L (8-16); Blood Urea Nitrogen 21 mg/dL (9-20); Calcium 8.9 mg/dL (8.4-10.2); Carbon Dioxide 37 mmol/L (22-30); Chloride 102 mmol/L (98-107); Estimated CRCL calculation 133 ml/min; Estimated Glomerular Filt Rate > 60; Glucose 100 mg/dL (75-110); Sodium 140 mmol/L (137-145)
[2020-10-05] MEDS: BUDESONIDE RESPULE NEB 0.5 MG/2 ML AMP INHALATION ×2 (07:51→19:46)
[2020-10-05 08:03] LABS: Glucose Point of Care 128 (65-105)
--- NOTE | 2020-10-05 08:30 | PCPTNOTE ---
Checked on patient this morning and patient refused therapy due to COFFMAN and being tired. RN made aware and therapist will come back.
[2020-10-05] MEDS: carvediloL 12.5 MG TABLET PO (09:21)
[2020-10-05] MEDS: predniSONE 20 MG TABLET 40 MG PO (09:21)
[2020-10-05] MEDS: ASPIRIN 81 MG ENTERIC TABLET PO (09:21)
[2020-10-05] MEDS: ENOXAPARIN 40 MG/0.4 ML SYRINGE SUB-Q (09:22)
[2020-10-05] MEDS: ATORVASTATIN 40 MG TABLET PO (09:22)
[2020-10-05] MEDS: lisinopriL 20 MG TABLET PO (09:22)
[2020-10-05] MEDS: SPIRONOLACTONE 25 MG TABLET PO (09:22)
[2020-10-05] MEDS: FUROSEMIDE INJ 40 MG/4 ML VIAL IV PUSH (09:23)
--- NOTE | 2020-10-05 10:18 | PM.PNCARD ---
Progress Note: A&P Assessment and Plan (1) Chronic obstructive pulmonary disease: Code(s): J44.9 - Chronic obstructive pulmonary disease, unspecified Status: Acute Assessment and Plan: Per hospitalists (2) Acute exacerbation of congestive heart failure: Code(s): I50.9 - Heart failure, unspecified Status: Acute Assessment and Plan: Related to hypertensive heart disease. Obesity hypoventilation syndrome. Continue carvedilol, aspirin, atorvastatin, spironolactone, lisinopril. Will increase his carvedilol to 25 mg p.o. b.i.d. Continue IV diuretics but will likely need to transition to oral within the next 24-48 hours. Starting to be able to wean oxygen. Once able to wean from high-flow oxygen to close to his home dose of oxygen, okay for discharge (3) Acute respiratory failure with hypoxia: Code(s): J96.01 - Acute respiratory failure with hypoxia Status: Acute Assessment and Plan: Undoubtedly has sleep apnea Appreciate pulmonology input (4) Hypertension: Code(s): I10 - Essential (primary) hypertension Status: Acute Assessment and Plan: As detailed above (5) Morbid obesity: Code(s): E66.01 - Morbid (severe) obesity due to excess calories Status: Acute (6) Non-compliance: Code(s): Z91.19 - Patient's noncompliance with other medical treatment and regimen Status: Acute Assessment and Plan: Currently not taking any medications at home (7) Tobacco dependence: Code(s): F17.200 - Nicotine dependence, unspecified, uncomplicated Status: Acute Assessment and Plan: Still smoking. Tobacco abuse counseling performed Subjective Date/time seen: 10/05/20 10:18 Interval history: 55-year-old admitted for shortness of breath. Date of service 10/05/2020: Sitting up to side of bed. Continues to improve. Switched to CPAP overnight and he tolerated this much better. No lower extremity swelling. No chest pain. Less short of breath. He is over 15 L negative since admission. Review of Systems Review of Systems: All systems reviewed & are unremarkable except as noted in HPI and below Constitutional: Constitutional: Denies body ache(s), Denies chills, Denies fatigue and Denies headache(s) Eyes: Eyes: Denies blurry vision ENT: Reports Normal hearing present, Denies headache(s) and Denies neck pain Cardiovascular: Cardiovascular: Reports chest pain, Reports lightheadedness and Reports dyspnea Respiratory: Respiratory: Reports cough and Reports dyspnea Gastrointestinal: Gastrointestinal: Denies abdominal pain Genitourinary: Genitourinary: Denies dysuria and Denies urinary frequency Musculoskeletal: Musculoskeletal: Denies back pain and Denies neck pain Integumentary/Breasts: Skin/Breast: Denies dry skin and Denies unusual bruising Neurologic: Reports Normal hearing present, Denies confusion and Denies headache(s) Psychiatric: Psychiatric: Denies anxiety and Denies confusion Endocrine: Endocrine: Denies fatigue and Denies flushing Hematologic/Lymphatic: Hematologic/Lymphatic: Denies easy bleeding and Denies easy bruising Allergic/Immunologic: Allergic/Immunologic: Denies GI upset with certain foods Exam Narrative: Exam Narrative: Alert awake and oriented. Appears to be no acute distress. Appears stated age Const: General: comfortable and no acute distress; No confusion Orientation/consciousness: No confusion HENMT: General nose exam: Normal nares present and no epistaxis Eyes: Sclera: sclerae normal Neck: Neck: supple and no JVD Chest: Other: No reproducible chest wall pain to palpation Resp: Auscultation: clear to auscultation bilaterally Cardio: Rate: regular rate Rhythm: regular rhythm GI: Inspection: normal to inspection Skin: General skin exam: normal color Neuro: General: No confusion Cranial nerves: Yes Normal hearing present Cognition (Neuro): normal cognit
[2020-10-05 11:19] LABS: Glucose Point of Care 127 (65-105)
--- NOTE | 2020-10-05 12:37 | PM.PNPUL ---
Progress Note: A&P Assessment and Plan (1) ERENDIRA (obstructive sleep apnea): Code(s): G47.33 - Obstructive sleep apnea (adult) (pediatric) Status: Acute Assessment and Plan: Continue CPAP 13 cm q.h.s. with 4 L oxygen bleed in at night I have ordered a split night sleep study to do as outpatient and follow up with us in clinic. ABG showed no significant hypercapnia and hence no significant evidence of OHS. BiPAP would not be helpful without a trial of CPAP titration 1st. In fact the patient did not tolerate BiPAP levels that were prescribed earlier this admission. (2) Tobacco dependence: Code(s): F17.200 - Nicotine dependence, unspecified, uncomplicated Status: Acute (3) Acute exacerbation of congestive heart failure: Code(s): I50.9 - Heart failure, unspecified Status: Acute Assessment and Plan: Currently being managed by Cardiology (4) Chronic obstructive pulmonary disease: Code(s): J44.9 - Chronic obstructive pulmonary disease, unspecified Status: Acute Assessment and Plan: continue ipratropium 0.5 mg q.6 hours nebulized Continue Pulmicort 1 mg q.6 hours nebulized Continue prednisone 40 mg daily for a total of 5 days then discontinue without weaning. (5) Morbid obesity: Code(s): E66.01 - Morbid (severe) obesity due to excess calories Status: Acute (6) Non-compliance: Code(s): Z91.19 - Patient's noncompliance with other medical treatment and regimen Status: Acute (7) Acute and chronic respiratory failure with hypoxia: Code(s): J96.21 - Acute and chronic respiratory failure with hypoxia Status: Acute Assessment and Plan: Continue weaning oxygen for O2 saturations of 90-93%. His home oxygen was at 3 L and he is currently on 10 L. Subjective Date/time seen: 10/05/20 12:37 Interval history: he tolerated CPAP 13 cm last night for about 3-4 hours but had take it off because of nasal congestion. He still on 10 L of oxygen per nasal cannula this morning but does not appear to be in any respiratory distress. Review of Systems Review of Systems: All systems reviewed & are unremarkable except as noted in HPI and below Exam Const: General: cooperative, healthy appearing, comfortable, no acute distress, well developed and alert HENMT: Head: normal to inspection, normocephalic and atraumatic Eyes: General: appearance normal, both eyes and all related structures Neck: Neck: trachea midline and supple Resp: Effort & Inspection: normal respiratory effort and able to speak in complete sentences Auscultation: clear to auscultation bilaterally and diminished lung sounds Cardio: Rate: regular rate Rhythm: regular rhythm Heart sounds: S1 normal heart sound present and S2 normal heart sound present GI: Inspection: normal to inspection Auscultation: normal bowel sounds Skin: General skin exam: normal color and no rashes or lesions noted Neuro: General: oriented to person, oriented to place, oriented to time and patient oriented x3 Extrem: General: normal to inspection and no clubbing, cyanosis or edema Psych: Appearance: grossly normal Mental Status: mental status grossly normal Objective Data Vital Signs Vital Signs: Vital Signs - 24 hr 10/04/20 14:00 10/04/20 14:24 10/04/20 14:38 Temperature Pulse Rate 89 80 82 Respiratory Rate 16 16 Blood Pressure Pulse Oximetry 10/04/20 16:00 10/04/20 18:00 10/04/20 19:49 Temperature 36.4 C L Pulse Rate 82 83 83 Respiratory Rate 18 Blood Pressure 135/90 Pulse Oximetry 93 10/04/20 20:00 10/04/20 20:28 10/04/20 20:41 Temperature 35.9 C L Pulse Rate 73 79 84 Respiratory Rate 22 H 16 16 Blood Pressure 151/91 H Pulse Oximetry 93 10/04/20 22:40 10/04/20 23:11 10/04/20 23:36 Temperature 36.0 C L Pulse Rate 74 74 Respiratory Rate 17 20 Blood Pressure 142/84 H Pulse Oximetry 93 94 93 10/05/20 00:00 10/05/20 0
--- NOTE | 2020-10-05 14:04 | PM.IMPN ---
Progress Note: A&P Assessment and Plan (1) Acute respiratory failure with hypoxia: Code(s): J96.01 - Acute respiratory failure with hypoxia Status: Acute Assessment and Plan: Pt is on 5 liters of oxygen high flow Likely secondary to congestive heart failure Continue to diuresis, daily weight and BMP (2) Acute exacerbation of congestive heart failure: Code(s): I50.9 - Heart failure, unspecified Status: Acute Assessment and Plan: Diuresing iv 40 mg daily continue to diuresis, pt advised to walk more in the room. Fluid restrict Daily weight EF 50-55% Pt is on coreg, spironolactone and lisinopril Daily bmp Cardiology consulted (3) Chronic obstructive pulmonary disease: Code(s): J44.9 - Chronic obstructive pulmonary disease, unspecified Status: Acute Assessment and Plan: Patient noncompliance with maintenance medications breathing treatments added and oral steroids Pulmonology consulted not an true exacerbation, treatments started due to non compliance (4) Hypertension: Code(s): I10 - Essential (primary) hypertension Status: Acute Assessment and Plan: Continue to monitor (5) Morbid obesity: Code(s): E66.01 - Morbid (severe) obesity due to excess calories Status: Acute Assessment and Plan: Lifestyle and diet modification 1800 calorie restricted diet (6) Congestive heart failure: Qualifiers: Heart failure chronicity: unspecified Heart failure type: unspecified Qualified Code(s): I50.9 - Heart failure, unspecified Code(s): I50.9 - Heart failure, unspecified Status: Acute Assessment and Plan: Likely secondary to patient not adherence to treatment Carvedilol, spironolactone and lisinopril (7) Tobacco dependence: Code(s): F17.200 - Nicotine dependence, unspecified, uncomplicated Status: Acute Assessment and Plan: Nicotine patch as needed (8) Non-compliance: Code(s): Z91.19 - Patient's noncompliance with other medical treatment and regimen Status: Acute Assessment and Plan: Patient has been given education regarding adherence (9) ERENDIRA (obstructive sleep apnea): Code(s): G47.33 - Obstructive sleep apnea (adult) (pediatric) Status: Acute Assessment and Plan: CPAP at night , weight loss adviced pulmonology consulted Subjective Date/time seen: 10/05/20 14:04 Interval history: 55-year-old admitted for shortness of breath. Pt passing urine good. Still on high-flow oxygen. on 5 liters continue to diuresis. Pt looks less swollen in his face and legs, still having abdominal swelling. Tolerating CPAP at night. Continue daily weights. Continue to diuresis. Review of Systems Review of Systems: All systems reviewed & are unremarkable except as noted in HPI and below Exam Const: Nutritional Appearance: overweight (Morbid obesity) Orientation/consciousness: patient oriented x3 Neck: Neck: full ROM, no lymphadenopathy and no JVD Thyroid: thyroid normal Lymphatic: no lymphadenopathy noted Resp: Effort & Inspection: normal respiratory effort and able to speak in complete sentences Auscultation: diminished lung sounds Cardio: Jugular venous distension: no JVD Rate: regular rate Rhythm: regular rhythm Heart sounds: S1 normal heart sound present and S2 normal heart sound present GI: Inspection: obesity Skin: Rashes: no rashes Wounds: no wounds Neuro: General: patient oriented x3 and CN's II-XI intact bilaterally Cranial nerves: Yes CN's II-XII intact bilaterally and Yes Equal, round and reactive pupils present Cognition (Neuro): normal cognition Speech: normal speech Gait exam (Neuro): Normal gait present Motor exam (neuro): 5/5 motor strength present throughout Extrem: General: edema bilateral and pedal edema Objective Data Vital Signs Vital Signs: Vital Signs - 24 hr 10/04/20 14:24 10/04/20 14:38 10/04/20 16:0
[2020-10-05 16:34] LABS: Glucose Point of Care 188 (65-105)
[2020-10-05] MEDS: FLUTICASONE PROPIONATE 0.05% NA SPR 16 GM BTL (*BKC) 2 SPRAY NASAL (17:55)
[2020-10-05 20:01] LABS: Glucose Point of Care 106 (65-105)
[2020-10-05] MEDS: carvediloL 25 MG TABLET PO (21:00)
[2020-10-06] VITALS (31 sets, daily range): BP systolic 115–164; BP diastolic 65–104; PULSE 68–82; RESP 16–26; TEMP 35.6–36.6; O2SAT 89–97
[2020-10-06] MEDS: IPRATROPIUM BR 0.02% INH SOLN 0.5 MG/2.5 ML VIAL INHALATION ×4 (01:52→20:04)
[2020-10-06 07:39] LABS: Glucose Point of Care 143 (65-105)
[2020-10-06] MEDS: BUDESONIDE RESPULE NEB 0.5 MG/2 ML AMP INHALATION (08:37)
[2020-10-06] MEDS: ASPIRIN 81 MG ENTERIC TABLET PO (09:07)
[2020-10-06] MEDS: carvediloL 25 MG TABLET PO ×2 (09:07→21:16)
[2020-10-06] MEDS: ENOXAPARIN 40 MG/0.4 ML SYRINGE SUB-Q (09:07)
[2020-10-06] MEDS: SPIRONOLACTONE 25 MG TABLET PO (09:07)
[2020-10-06] MEDS: ATORVASTATIN 40 MG TABLET PO (09:08)
[2020-10-06] MEDS: lisinopriL 20 MG TABLET PO (09:08)
[2020-10-06] MEDS: FUROSEMIDE INJ 40 MG/4 ML VIAL IV PUSH (09:08)
[2020-10-06] MEDS: predniSONE 20 MG TABLET 40 MG PO (10:06)
--- NOTE | 2020-10-06 10:26 | PM.PNPUL ---
Progress Note: A&P Assessment and Plan (1) ERENDIRA (obstructive sleep apnea): Code(s): G47.33 - Obstructive sleep apnea (adult) (pediatric) Status: Acute Assessment and Plan: 10/06 We obtained a download from 08/19/2019 1-11/2020 and the patient is on a auto by level -Bi-Flex with a maximal inspiratory pressure of 25, a minimal expiratory pressure of 16 and a maximal so pressure support of 8, minimal purse pressure support of 0. He is also on a 30 minutes ramp starting at 12. Patient wears a fullface mask but says that it does leak and has worn out. Looking at his compliance it is poor with % of days used greater than or equal to 4 hours at 3.3%. Average usage per days used is 1 hour and 1 minutes. His maximal titrated IPAP is 16, his maximal titrated EPAP is 16. His average time with a large leak per day is 46 minutes, his average AHI is 2.5. Patient states that the nasal mask is tolerated much better than his current full face and we have placed na order for a new nasal mask to DME. He will also take the current hospital mask home. Tonight I will place on CPAP 16 as it appears he does not use his BiLEVEL support per his download. I will place him on 3 L bleed in and obtain an apnea link to assess oxygenation at night. ABG showed no significant hypercapnia (7.40/44/58 on BiPAP). I will check ABG prior to removal of CPAP to assess ventilation. Ready for discharge from pulmonary perspective if apnea link and morning ABG acceptable Dr. Brown ordered a split night sleep study to do as outpatient and follow up with us in clinic. Of note, the patient did not tolerate BiPAP levels that were prescribed earlier this admission. (2) Chronic obstructive pulmonary disease: Code(s): J44.9 - Chronic obstructive pulmonary disease, unspecified Status: Acute Assessment and Plan: Patient on no home medications for COPD. Currently on 7 L nc oxygen with sats 90%, no wheezes. No evidence of bacterial infection. Currently on prednisone 40 PO Q day for 5 days (started 10/03 and last dose 10/07), ipratroprium 0.5 Q 6 and budesonide 0.5 neb Q 12. Patient told me that he uses oxygen 3 L during day at home and has not had any test to determine if this is correct in at least 3 years. Per DME he is supposed to use 3 L at rest and 6 with ambulation. (3) Acute exacerbation of congestive heart failure: Code(s): I50.9 - Heart failure, unspecified Status: Acute Assessment and Plan: Agree with aggressive diuresis as tolerated by cardiac and renal systems directed by hospitalist and cost estimating engineer. 10/06 Cumulative diuresis since admission [id number]. Improved edema and SOB. Will follow with you. Subjective Date/time seen: 10/06/20 10:26 Interval history: 10/06 Patient states that he is currently breathing at his baseline. Patient states that he is breathing better today than he has in the last few months. Current saturations on 7 L nasal cannula are 90%. Patient diuresed 730 mL yesterday. Patient wore the hospital CPAP 13 with 4 L bleed in and a nasal mask overnight and said that he tolerated it pretty well. Patient told me that he uses oxygen 3 L during day at home and has not had any test to determine if this is correct in at least 3 years. Patient told me today that he did not know his DME company but stated that it was in [place] and we have determined that [employer] is his DME company. He tells me that he does not use oxygen at night because he thought that was what he should do. Per DME he is supposed to use 3 L art rest and 6 with ambulation. We obtained a download from 08/19/2019 1-11/2020 and the patient is on a auto by level -Bi-Flex with a maximal inspiratory pressure of 25, a minimal expiratory pressure of 16 and a maximal so pressure support of 8, minimal purse pressure support of 0. He is also on a 30 minutes ramp starting at 12. Patient wears a fullface mask but says that it does leak and has worn
--- NOTE | 2020-10-06 11:49 | PCDIET ---
Weekly nutritional screen. Patient is tolerating current diet with adequate intake. No weight loss reported. Patient requested diet information which was provided. See Nutritional Teaching for additional details. No further nutritional needs at this time.
[2020-10-06 12:16] LABS: Glucose Point of Care 177 (65-105)
--- NOTE | 2020-10-06 13:31 | PM.IMPN ---
Progress Note: A&P Assessment and Plan (1) Acute respiratory failure with hypoxia: Code(s): J96.01 - Acute respiratory failure with hypoxia Status: Acute Assessment and Plan: Pt is on 7 liters of oxygen high flow Likely secondary to congestive heart failure Continue to diuresis, daily weight and BMP (2) Acute exacerbation of congestive heart failure: Code(s): I50.9 - Heart failure, unspecified Status: Acute Assessment and Plan: Diuresing iv 40 mg daily continue to diuresis, pt advised to walk more in the room. Fluid restrict Daily weight EF 50-55% Pt is on coreg, spironolactone and lisinopril Daily bmp Cardiology consulted (3) Chronic obstructive pulmonary disease: Code(s): J44.9 - Chronic obstructive pulmonary disease, unspecified Status: Acute Assessment and Plan: Patient noncompliance with maintenance medications breathing treatments added and oral steroids Pulmonology consulted not an true exacerbation, treatments started due to non compliance (4) Hypertension: Code(s): I10 - Essential (primary) hypertension Status: Acute Assessment and Plan: Continue to monitor (5) Morbid obesity: Code(s): E66.01 - Morbid (severe) obesity due to excess calories Status: Acute Assessment and Plan: Lifestyle and diet modification 1800 calorie restricted diet (6) Congestive heart failure: Qualifiers: Heart failure chronicity: unspecified Heart failure type: unspecified Qualified Code(s): I50.9 - Heart failure, unspecified Code(s): I50.9 - Heart failure, unspecified Status: Acute Assessment and Plan: Likely secondary to patient not adherence to treatment Carvedilol, spironolactone and lisinopril (7) Tobacco dependence: Code(s): F17.200 - Nicotine dependence, unspecified, uncomplicated Status: Acute Assessment and Plan: Nicotine patch as needed (8) Non-compliance: Code(s): Z91.19 - Patient's noncompliance with other medical treatment and regimen Status: Acute Assessment and Plan: Patient has been given education regarding adherence (9) ERENDIRA (obstructive sleep apnea): Code(s): G47.33 - Obstructive sleep apnea (adult) (pediatric) Status: Acute Assessment and Plan: CPAP at night , weight loss adviced pulmonology consulted and recommendations are followed. Subjective Date/time seen: 10/06/20 13:31 Interval history: 55-year-old admitted for shortness of breath. Pt passing urine good. Still on high-flow oxygen. on 7 liters continue to diuresis. Pt looks less swollen in his face and legs. Tolerating CPAP at night. Continue daily weights. Continue to diuresis. Seen by cardiology and pulmonology Review of Systems Review of Systems: All systems reviewed & are unremarkable except as noted in HPI and below Exam Narrative: Exam Narrative: Pt lying in bed, on oxygen. large man Const: Nutritional Appearance: overweight (Morbid obesity) Resp: Effort & Inspection: normal respiratory effort and able to speak in complete sentences Auscultation: diminished lung sounds Cardio: Jugular venous distension: no JVD Rate: regular rate Rhythm: regular rhythm Heart sounds: S1 normal heart sound present and S2 normal heart sound present GI: Inspection: obesity Skin: Rashes: no rashes Wounds: no wounds Neuro: General: patient oriented x3 and CN's II-XI intact bilaterally Cranial nerves: Yes CN's II-XII intact bilaterally and Yes Equal, round and reactive pupils present Cognition (Neuro): normal cognition Speech: normal speech Gait exam (Neuro): Normal gait present Motor exam (neuro): 5/5 motor strength present throughout Extrem: General: no pedal edema Objective Data Vital Signs Vital Signs: Vital Signs - 24 hr 10/05/20 14:00 10/05/20 16:00 10/05/20 18:00 Temperature 36.5 C Pulse Rate 86 81 79 Respiratory Rate 18 Blood Pre
--- NOTE | 2020-10-06 14:55 | PM.PNCARD ---
Progress Note: A&P Assessment and Plan (1) Chronic obstructive pulmonary disease: Code(s): J44.9 - Chronic obstructive pulmonary disease, unspecified Status: Acute Assessment and Plan: Management per hospitalist service. (2) Acute exacerbation of congestive heart failure: Code(s): I50.9 - Heart failure, unspecified Status: Acute Assessment and Plan: Related to hypertensive heart disease and untreated ERENDIRA along with obesity hypoventilation syndrome. Continue carvedilol, aspirin, atorvastatin, spironolactone, lisinopril. Continue carvedilol 25 mg p.o. b.i.d. Continue IV diuretics but will plan to transition to oral regimen 80 mg daily possibly tomorrow. Wean O2 as tolerated. Diuresing very well. -18 L thus far. (3) Acute respiratory failure with hypoxia: Code(s): J96.01 - Acute respiratory failure with hypoxia Status: Acute Assessment and Plan: Benefitting from CPAP. Patient states he has CPAP at home that he occasionally wears. Appreciate pulmonology input (4) Hypertension: Code(s): I10 - Essential (primary) hypertension Status: Acute Assessment and Plan: Controlled. (5) Morbid obesity: Code(s): E66.01 - Morbid (severe) obesity due to excess calories Status: Acute Assessment and Plan: Lifestyle modification, weight loss, reduction caloric intake. (6) Non-compliance: Code(s): Z91.19 - Patient's noncompliance with other medical treatment and regimen Status: Acute Assessment and Plan: Explained the importance of compliance of medications, follow-up, CPAP reduce risk for complications including CHF, hospital admission and maintenance of quality of life. Patient verbalized understanding. (7) Tobacco dependence: Code(s): F17.200 - Nicotine dependence, unspecified, uncomplicated Status: Acute Assessment and Plan: Counseled at length. Patient states he definitely plans to quit as of now. Tobacco abuse counseling performed Subjective Date/time seen: Date of service: 10/06/20 14:55 Interval history: 55-year-old admitted for shortness of breath and CHF, ERENDIRA. Feeling better overall. Less short of breath. Sleeping better as well. Tolerating CPAP with nasal pillow. Diuresing well with IV Lasix. No dizziness, chest pain. Edema improving. No new concerns overnight. Review of Systems Review of Systems: All systems reviewed & are unremarkable except as noted in HPI and below Constitutional: Constitutional: Denies body ache(s), Denies chills, Denies fatigue and Denies headache(s) Eyes: Eyes: Denies blurry vision ENT: Reports Normal hearing present, Denies headache(s) and Denies neck pain Cardiovascular: Cardiovascular: Reports chest pain, Reports lightheadedness and Reports dyspnea Respiratory: Respiratory: Reports cough and Reports dyspnea Gastrointestinal: Gastrointestinal: Denies abdominal pain Genitourinary: Genitourinary: Denies dysuria and Denies urinary frequency Musculoskeletal: Musculoskeletal: Denies back pain and Denies neck pain Integumentary/Breasts: Skin/Breast: Denies dry skin and Denies unusual bruising Neurologic: Reports Normal hearing present, Denies confusion and Denies headache(s) Psychiatric: Psychiatric: Denies anxiety and Denies confusion Endocrine: Endocrine: Denies fatigue and Denies flushing Hematologic/Lymphatic: Hematologic/Lymphatic: Denies easy bleeding and Denies easy bruising Allergic/Immunologic: Allergic/Immunologic: Denies GI upset with certain foods Exam Narrative: Exam Narrative: Alert awake and oriented. Appears to be no acute distress. Appears stated age Const: General: comfortable and no acute distress; No confusion Orientation/consciousness: No confusion HENMT: General nose exam: Normal nares present and no epistaxis Eyes: Sclera: sclerae normal Neck: Neck: supple and no JVD Chest: Other: No reproducible chest wal
[2020-10-06 16:43] LABS: Glucose Point of Care 243 (65-105)
[2020-10-06] MEDS: FLUTICASONE PROPIONATE 0.05% NA SPR 16 GM BTL (*BKC) 2 SPRAY NASAL (18:44)
[2020-10-06] MEDS: INSULIN ASPART (*BKC) 100 UNITS/ML SUB-Q (18:44)
[2020-10-06 20:22] LABS: Glucose Point of Care 140 (65-105)
[2020-10-07] VITALS (24 sets, daily range): BP systolic 141–146; BP diastolic 75–92; PULSE 66–115; RESP 16–22; TEMP 35.9–36.5; O2SAT 85–97
[2020-10-07 04:29] LABS: Alveolar/Arterial O2 Gradient 98.9 mmHg; Base Excess ABG 6.2 mEq/l (+/-2.0); Fractional Inspired Oxygen 32 %; HCO3 ABG 32.1 mEq/l (22.0-26.0); Oxygen Saturation ABG 94.2 % (95.0-100.0); PCO2 ABG 50.5 mmHg (35.0-45.0); PO2 ABG 70.2 mmHg (80.0-100.0); PO2 FiO2 Ratio Arterial Blood 2.19 %; pH ABG 7.421 (7.350-7.450)
[2020-10-07 04:30] LABS: Device BIPAP; Inspiratory Pressure 16 cmH2O; Modified Allen's Test Pass; Site Drawn RIGHT RADIAL
[2020-10-07 07:07] LABS: Glucose Point of Care 112 (65-105)
[2020-10-07] MEDS: SPIRONOLACTONE 25 MG TABLET PO (08:11)
[2020-10-07] MEDS: ASPIRIN 81 MG ENTERIC TABLET PO (08:11)
[2020-10-07] MEDS: predniSONE 20 MG TABLET 40 MG PO (08:11)
[2020-10-07] MEDS: ENOXAPARIN 40 MG/0.4 ML SYRINGE SUB-Q (08:11)
[2020-10-07] MEDS: FUROSEMIDE INJ 40 MG/4 ML VIAL IV PUSH (08:12)
[2020-10-07] MEDS: carvediloL 25 MG TABLET PO (08:12)
[2020-10-07] MEDS: ATORVASTATIN 40 MG TABLET PO (08:12)
[2020-10-07] MEDS: lisinopriL 20 MG TABLET PO (08:12)
--- NOTE | 2020-10-07 08:22 | PM.PNPUL ---
Progress Note: A&P Assessment and Plan (1) ERENDIRA (obstructive sleep apnea): Code(s): G47.33 - Obstructive sleep apnea (adult) (pediatric) Status: Acute Assessment and Plan: 10/06 We obtained a download from 08/19/2019 1-11/2020 and the patient is on a auto by level -Bi-Flex with a maximal inspiratory pressure of 25, a minimal expiratory pressure of 16 and a maximal so pressure support of 8, minimal purse pressure support of 0. He is also on a 30 minutes ramp starting at 12. Patient wears a fullface mask but says that it does leak and has worn out. Looking at his compliance it is poor with % of days used greater than or equal to 4 hours at 3.3%. Average usage per days used is 1 hour and 1 minutes. His maximal titrated IPAP is 16, his maximal titrated EPAP is 16. His average time with a large leak per day is 46 minutes, his average AHI is 2.5. Patient states that the nasal mask is tolerated much better than his current full face and we have placed na order for a new nasal mask to DME. He will also take the current hospital mask home. Tonight I will place on CPAP 16 as it appears he does not use his BiLEVEL support per his download. I will place him on 3 L bleed in and obtain an apnea link to assess oxygenation at night. ABG showed no significant hypercapnia (7.40/44/58 on BiPAP). I will check ABG prior to removal of CPAP to assess ventilation. Ready for discharge from pulmonary perspective if apnea link and morning ABG acceptable 10/07 Patient states that he is breathing at his baseline. Saturations on 6 L nasal cannula are 91%. Patient states that he did wear the CPAP overnight and that he felt he got a good night sleep. Patient was on a hospital CPAP of 16 with nasal mask and 3 L bleed in overnight and had a blood gas at the end of the night of a pH of 7.42/51/70. Patient had an overnight oximetry on these settings from 22:00 to 02:00 at that time the sensor was found disconnected. Patient's average saturation was 93%. Lowest saturation was 56%. Time with saturation less than or equal to 88% was 28 minutes which corresponded to 15% of the monitored time. Ready for discharge from pulmonary perspective: CPAP 16 with 4L bleed in when sleeps Oxygen per home O2 assessment (I have ordered this morning) Fluticasone spray 2 spray each nostril Q HS Muscarinic antagonist that his insurance will cover: atrovent 2 puffs Q 6 HR, incruse ellipta 62.5 at 1 puffs Q day, spireva 18 mics at 1 puff Q day or spireva respimat 2.5 mics at 1 puff Q day. Rescue albuterol 2 puffs Q 4 H PRN SOB or wheezing. Follow up in pulmonary clinic 4 weeks. I gave him our business card and informed our senior power scheduler. He will need a CPAP titration to ensure CPAP 16 is adequate with a nasal mask. Of note, the patient did not tolerate BiPAP levels that were prescribed earlier this admission. Discussed with Dr. Peoples, call with questions. (2) Chronic obstructive pulmonary disease: Code(s): J44.9 - Chronic obstructive pulmonary disease, unspecified Status: Acute Assessment and Plan: 10/06 Patient on no home medications for COPD. Currently on 7 L nc oxygen with sats 90%, no wheezes. No evidence of bacterial infection. Currently on prednisone 40 PO Q day for 5 days (started 10/03 and last dose 10/07), ipratroprium 0.5 Q 6 and budesonide 0.5 neb Q 12. Patient told me that he uses oxygen 3 L during day at home and has not had any test to determine if this is correct in at least 3 years. Per DME he is supposed to use 3 L at rest and 6 with ambulation. 10/07 No wheezes. Finished prednisone 40 Q day for 5 days today. DC on muscaranic antagonist as above. Will need outpatient PFTs to assess lung function and volumes. I stressed smoking cessation and avoidance of second hand smoke with him and he stated he will not smoke anymore after this discharge. (3) Acute exacerbation of congestive heart failure: Code(s): I50.9 - Heart failure, unspecified
[2020-10-07 08:25] LABS: Anion Gap 5 mmol/L (8-16); Blood Urea Nitrogen 26 mg/dL (9-20); Calcium 9.3 mg/dL (8.4-10.2); Carbon Dioxide 35 mmol/L (22-30); Chloride 100 mmol/L (98-107); Estimated CRCL calculation 121 ml/min; Estimated Glomerular Filt Rate > 60; Glucose 189 mg/dL (75-110); Potassium 4.1 mmol/L (3.4-5.0); Sodium 140 mmol/L (137-145)
[2020-10-07] MEDS: IPRATROPIUM BR 0.02% INH SOLN 0.5 MG/2.5 ML VIAL INHALATION ×2 (08:53→14:36)
--- NOTE | 2020-10-07 09:34 | PCRCNOTE ---
Order for home nasal CPAP mask, CPAP level change and CPAP oxygen bleed-in faxed to patient's DME, [facility] (phone ).
--- NOTE | 2020-10-07 11:53 | PCRCNOTE ---
HOME O2 EVAL DONE, PT REQUIRES 5 L AT REST AND 8 L WITH EXERTION. HIGH FLOW CANNULA. PT HAS IV AND RESP. CARE. DME. PT HAS 2 TANKS IN ROOM FOR TRANSPORT HOME.
[2020-10-07 11:54] LABS: Glucose Point of Care 175 (65-105)
--- NOTE | 2020-10-07 13:54 | HOMEO2EVAL ---
Evaluation was performed at [facility] Home Oxygen Evaluation RC: Home Oxygen (O2) Evaluation Start: 10/07/20 08:07 Freq: ONCE Status: Active Protocol: RPE Activity Type Activity Date Activity User E-Sign Co-Sign Detail Recorded Client Recorded Date Recorded By Document 10/07/20 11:15 [email or web address] [email or web address] 10/07/20 11:53 DAGOBERTO Document 10/07/20 11:18 [email or web address] [email or web address] 10/07/20 11:53 DAGOBERTO Document 10/07/20 11:20 [email or web address] [email or web address] 10/07/20 11:53 DAGOBERTO Document 10/07/20 11:22 [email or web address] [email or web address] 10/07/20 11:53 DAGOBERTO Document 10/07/20 11:30 [email or web address] [email or web address] 10/07/20 11:53 DAGOBERTO Document 10/07/20 11:32 [email or web address] [email or web address] 10/07/20 11:53 DAGOBERTO Document 10/07/20 11:35 [email or web address] [email or web address] 10/07/20 11:53 DAGOBERTO Document 10/07/20 11:38 [email or web address] [email or web address] 10/07/20 11:53 DAGOBERTO Document 10/07/20 11:45 [email or web address] [email or web address] 10/07/20 11:53 DAGOBERTO 10/07/20 10/07/20 10/07/20 11:15 11:18 11:20 Home O2 Evaluation Test Phase Resting Resting Resting Oxygen Delivery Room Air High Flow High Flow Therapy with Therapy with Nasal Cannula Nasal Cannula Oxygen Flow Rate (L/min) 2 4 Pulse Oximetry (90-100 %) 85 L 85 L 87 L Pulse Rate (60-100 beats/min) Home Oxygen Evaluation Comments Treatment Charges O2 Evaluation - Inpatient 10/07/20 10/07/20 10/07/20 11:22 11:30 11:32 Home O2 Evaluation Test Phase Resting Exercise Exercise Oxygen Delivery High Flow High Flow High Flow Therapy with Therapy with Therapy with Nasal Cannula Nasal Cannula Nasal Cannula Oxygen Flow Rate (L/min) 5 5 6 Pulse Oximetry (90-100 %) 91 86 L 86 L Pulse Rate (60-100 beats/min) 92 106 H 110 H Home Oxygen Evaluation Comments Treatment Charges 10/07/20 10/07/20 10/07/20 11:35 11:38 11:45 Home O2 Evaluation Test Phase Exercise Exercise Resting Oxygen Delivery High Flow High Flow High Flow Therapy with Therapy with Therapy with Nasal Cannula Nasal Cannula Nasal Cannula Oxygen Flow Rate (L/min) 7 8 5 Pulse Oximetry (90-100 %) 87 L 90 93 Pulse Rate (60-100 beats/min) 115 H 115 H 90 Home Oxygen Evaluation Comments UP OUT OF BED TO CHAIR WITH WALKER. Treatment Charges
--- NOTE | 2020-10-07 14:25 | PM.PNCARD ---
Progress Note: A&P Assessment and Plan (1) Chronic obstructive pulmonary disease: Code(s): J44.9 - Chronic obstructive pulmonary disease, unspecified Status: Acute Assessment and Plan: Management per hospitalist service. (2) Acute exacerbation of congestive heart failure: Code(s): I50.9 - Heart failure, unspecified Status: Acute Assessment and Plan: Related to hypertensive heart disease and untreated ERENDIRA along with obesity hypoventilation syndrome. Continue carvedilol, aspirin, atorvastatin, spironolactone, lisinopril. Continue carvedilol 25 mg p.o. b.i.d. Transition to oral regimen 80 mg daily. BMP 1 week after discharge. Follow up in our office in 2-4 weeks. Wean O2 as tolerated when back to baseline may consider discharge home. Diuresing very well. -24 L thus far. (3) Acute respiratory failure with hypoxia: Code(s): J96.01 - Acute respiratory failure with hypoxia Status: Acute Assessment and Plan: Benefitting from CPAP. Patient states he has CPAP at home that he occasionally wears. Needs O2 eval, CPAP compliance, smoking cessation, and consistent follow up. Appreciate pulmonology input (4) Hypertension: Code(s): I10 - Essential (primary) hypertension Status: Acute Assessment and Plan: Controlled. (5) Morbid obesity: Code(s): E66.01 - Morbid (severe) obesity due to excess calories Status: Acute Assessment and Plan: Lifestyle modification, weight loss, reduction caloric intake. (6) Non-compliance: Code(s): Z91.19 - Patient's noncompliance with other medical treatment and regimen Status: Acute Assessment and Plan: Explained the importance of compliance of medications, follow-up, CPAP reduce risk for complications including CHF, hospital admission and maintenance of quality of life. Patient verbalized understanding. (7) Tobacco dependence: Code(s): F17.200 - Nicotine dependence, unspecified, uncomplicated Status: Acute Assessment and Plan: Counseled at length. Patient states he definitely plans to quit as of now. Tobacco abuse counseling performed Subjective Date/time seen: Date of Service: 10/07/20 14:25 Follow-up for CHF feeling fine. Denies significant shortness of breath. No chest pain, palpitations. No new issues overnight. Compliant with CPAP. Remains on 5 L nasal cannula. Has O2 at home But as he does not have a concentrator he does not wear with activity apparently. Review of Systems Review of Systems: All systems reviewed & are unremarkable except as noted in HPI and below Constitutional: Constitutional: Denies body ache(s), Denies chills, Denies fatigue and Denies headache(s) Eyes: Eyes: Denies blurry vision ENT: Reports Normal hearing present, Denies headache(s) and Denies neck pain Cardiovascular: Cardiovascular: Reports chest pain, Reports lightheadedness and Reports dyspnea Respiratory: Respiratory: Reports cough and Reports dyspnea Gastrointestinal: Gastrointestinal: Denies abdominal pain Genitourinary: Genitourinary: Denies dysuria and Denies urinary frequency Musculoskeletal: Musculoskeletal: Denies back pain and Denies neck pain Integumentary/Breasts: Skin/Breast: Denies dry skin and Denies unusual bruising Neurologic: Reports Normal hearing present, Denies confusion and Denies headache(s) Psychiatric: Psychiatric: Denies anxiety and Denies confusion Endocrine: Endocrine: Denies fatigue and Denies flushing Hematologic/Lymphatic: Hematologic/Lymphatic: Denies easy bleeding and Denies easy bruising Allergic/Immunologic: Allergic/Immunologic: Denies GI upset with certain foods Exam Narrative: Exam Narrative: Alert awake and oriented. Appears to be no acute distress. Appears stated age Const: General: comfortable and no acute distress; No confusion Orientation/consciousness: No confusion HENMT: General nose exam: Normal na
--- NOTE | 2020-10-07 16:27 | PCRCNOTE ---
SPOKE TO ALEKSEY AT [facility]. THEY WILL SEND OUT A THERAPIST TO RESET BI-LEVEL TO HAVE A CONTINUOUS PRESSURE OF 16 WITH A NEW BLEED IN OF 4 LITERS. THE [facility] LINK DOESNT QUALIFY HIM FOR A CPAP. PT HAS ONLY A BIPAP UNIT AT HOME CURRENTLY. ALEKSEY WILL ARRANGE WITH MOTHER UPON DISCHARGE
--- NOTE | 2020-10-07 16:39 | PM.DS ---
DS: Admitting Diagnosis Admitting Diagnosis Admitting Diagnosis: Shortness of breath DS: Summary Hospital Course Reason for hospitalization: Chief Complaint: Shortness of breath. Narrative: This a 55-year-old male with chronic respiratory failure on 3.5 liters nasal cannula at nighttime, hypertension, congestive heart failure, and COPD presented to the emergency department earlier today via private vehicle for evaluation of shortness of breath. He has a history of noncompliance and has not taken any of his medications in quite some time for unclear reasons. He has chronic dyspnea on exertion and will frequently get midsternal chest heaviness when walking up steps associated with shortness of breath. The pain typically resolves with resting for short period of time. Patient believes that he may have underlying coronary artery disease and it sounds as though he had a heart catheterization done in [place] within the last year or so although no stents were placed. In any regard he has had increasing dyspnea on lesser and lesser exertion for the past couple of days and was much worse this morning. His SpO2 was 68% on room air when he arrived to triage and he was started on BiPAP. Chest x-ray demonstrated congestive changes and pretty significant pulmonary edema. Blood pressures were also high and he was started on nitro paste. The time my evaluation he is comfortable on BiPAP and reports having put out quite a bit urine. I let him take a break from the BiPAP while I was in the room and his SpO2 was hanging right around 90% on 4 liters nasal cannula. He denies fever, chills, sweats, cold and flu symptoms, exposure to COVID-19, current chest pain, pleuritic chest pain, palpitations, cough, nausea, vomiting, and sweats. Hospital Course: Patient presented patient presented with shortness of breath multifactorial, as patient has history of hypertensive heart disease patient seen by double needle stitcher patient being treated with Coreg, aspirin, atorvastatin spironolactone and lisinopril as well as morbid obesity and hypoventilation patient was seen by pulmonology his BiPAP was adjusted which did improve his oxygenation patient overall symptoms have improved will discharge the patient today. Status at Discharge Functional status at discharge: uses cane/walker Overall status at discharge: patient is back to baseline Time Spent with Patient Time attestation: Total time spent providing and/or coordinating discharge services: Patient was seen and examined at the time of the discharge Condition at discharge is stable Code status: Full code. Time spent preparing discharge summary, discharge medications, discussing discharge planning with hospice case manager and patient is 35 minutes. Time spent: Greater than 30 minutes Exam Narrative: Exam Narrative: Morbidly obese Patient is comfortable, NAD HEENT: eyes are clear and none icteric LUNGS: Bilateral fair air entry with rales and rhonchi HEART: RR S1S2 ABD: BS+, Soft and nontender Lower extremities: no edema SKIN: nonjaundiced Neuro: grossly intact. DS: Data Data Completed and Pending Labs on day of discharge: Labs from last 24 hours 10/07/20 10/07/20 10/07/20 11:22 08:03 07:04 Puncture Site ABG pH ABG pCO2 ABG pO2 ABG PO2/FiO2 Ratio ABG HCO3 ABG O2 Saturation ABG O2 Content ABG Base Excess A-a Gradient Oxyhemoglobin Total Hemoglobin O2 Delivery Device O2 Liters/Min FiO2 Expiratory Pressure Inspiratory Pressure Sodium 140 Potassium 4.1 Chloride 100 Carbon Dioxide 35 H Anion Gap 5 L BUN 26 H Creatinine 1.00 Estim Creat Clear Calc 121 Estimated GFR > 60 Glucose 189 H POC Capillary Glucose 175 H 112 H Calcium 9.3 10/07/20 10/06/20 10/06/20 04:08 20:12 16:10 Puncture Site Right radial ABG pH 7.421 ABG pCO2 50.5 H ABG pO2 70.2 L ABG PO2/FiO2 Ratio 2.19 ABG HCO3 32.1 H ABG O2 Saturat
[2020-10-07 17:13] LABS: Glucose Point of Care 288 (65-105)
[2020-10-07] MEDS: FLUTICASONE PROPIONATE 0.05% NA SPR 16 GM BTL (*BKC) 2 SPRAY NASAL (17:55)
[2020-10-07] MEDS: INSULIN ASPART (*BKC) 100 UNITS/ML SUB-Q (17:55)
== END 2020-10-07 18:35 | disposition home or self-care (01) | DRG 194 ==
LOC: ANHED 15:19 → ANHIMU 16:55
PROVIDERS: Family Medicine; Internal Medicine Cardiovascular Disease; Internal Medicine Pulmonary Disease; Physician Assistant; Admitting Provider Internal Medicine; Emergency Provider Emergency Medicine; Visit Provider Family Medicine
DX: I11.0 Hypertensive heart disease with heart failure (principal); J96.21 Acute and chronic respiratory failure with hypoxia; Z20.822 Contact with and (suspected) exposure to COVID-19; I50.9 Heart failure, unspecified; Z68.43 Body mass index [BMI] 50.0-59.9, adult; E66.2 Morbid (severe) obesity with alveolar hypoventilation; F17.210 Nicotine dependence, cigarettes, uncomplicated; J44.9 Chronic obstructive pulmonary disease, unspecified; E78.5 Hyperlipidemia, unspecified; M10.9 Gout, unspecified; Z91.19 Patient's noncompliance with other medical treatment and regimen; Z99.81 Dependence on supplemental oxygen
CPT/HCPCS: 36415; 36600; 71045; 71046; 80048; 80053; 82805; 82948; 83036; 83735; 83880; 84443; 84484; 85025; 85027; 85610; 85730; 87040; 87804; 93005; 93306; 93970; 94002; 94003; 94618; 94640; 94762; 96374; 97110; 97116; 97162; 97165; 99291; A9270; C9803; J0360; J1650; J1815; J1940; J7512; U0003; U0005